=== PATIENT | female | born 1990 | race Caucasian/White ===

== ENCOUNTER 2020-09-06 17:38 | Emergency (ER) | payer OTHER, SELFPAY ==
[2020-09-06 19:25] VITALS: BP 123/69; PULSE 78; RESP 18; TEMP 36.9; O2SAT 98; BMI 33.9
--- NOTE | 2020-09-06 20:19 | ED_ITS ---
HPI - Head Injury General Chief complaint: Wound/Laceration Stated complaint: head inj Time Seen by Provider: 09/06/20 20:19 Source: patient Mode of arrival: ambulatory Limitations: no limitations History of Present Illness HPI Narrative: patient bent down and hit her head on the corner of the electrical box, no LOC, up to date with tetevelyne MONTILLA Complaint: head injury Onset (ago): hour(s) (3 hours) Place: work Loss of Consciousness: no Severity: mild Quality: sharp Other Injuries: laceration Associated symptoms: denies other symptoms Related Data Home Medications Medication Instructions Recorded Confirmed albuterol sulfate 90 mcg/actuation INHALATION 01/21/20 08/30/20 aerosol inhaler flu vacc [id number] 6mos up(PF) ml IM 01/21/20 08/30/20 Previous Rx's Medication Instructions Recorded naproxen 500 mg tablet 500 mg PO BID PRN #60 tab 01/21/20 sertraline 100 mg tablet 150 mg PO DAILY 30 Days #45 cap 08/30/20 Allergies Allergy/AdvReac Type Severity Reaction Status Date / Time bacitracin Allergy Unknown blisters Unverified 08/30/20 07:23 Review of Systems Constitutional: Constitutional: Reports no additional constitutional complaints Eyes: Eyes: Reports no additional eye complaints ENT: Denies dizziness Cardiovascular: Cardiovascular: Reports no additional cardiovascular complaints Respiratory: Respiratory: Reports as per HPI Gastrointestinal: Gastrointestinal: Reports no additional gastrointestinal complaints Genitourinary: Genitourinary: Reports no additional female genitourinary complaints Musculoskeletal: Musculoskeletal: Reports no additional musculoskeletal complaints Integumentary/Breasts: Skin/Breast: Denies rash Neurologic: Reports system reviewed and no additional complaints, except as documented, Denies dizziness and Denies Sensory deficit (Neuro) Psychiatric: Psychiatric: Denies anxiety [facility] Past Medical History Medical History Anxiety Asthma Depression Social History Social History Advance Directives: No Advance Directives Information Provided: No Patient : No Physical Exam Vital Signs: Vital Signs: Last Vital Signs Temp 98.4 F 09/06/20 19:25 Pulse 78 09/06/20 19:25 Resp 18 09/06/20 19:25 BP 123/69 09/06/20 19:25 Pulse Ox 98 09/06/20 19:25 Body Mass Index 33.9 Const: General: healthy appearing Nutritional Appearance: average body habitus Orientation/consciousness: oriented to person and patient oriented x3 Limitations: no limitations HENMT: Head: Yes normal to inspection Ears: external ears normal General nose exam: Normal external nose present Mouth: Normal oral and palatal mucosa present and oropharynx normal Throat: Yes posterior oropharynx normal Eyes: General: appearance normal, both eyes and all related structures Neck: Other: supple Neck: Yes normal visual inspection Chest: Chest palpation & inspection: normal inspection of the chest Resp: Auscultation: clear to auscultation bilaterally Cardio: Jugular venous distension: no JVD Rate: regular rate Rhythm: regular rhythm Heart sounds: S1 normal heart sound present and S2 normal heart sound present GI: Inspection: Yes normal to inspection Palpation (GI): Soft to palpation, nontender and No hepatosplenomegaly present Auscultation: normal bowel sounds : General: Yes no CVA tenderness Back/Spine/Pelvis: Back: no CVA tenderness Skin: Other: 2cm laceration to the vertex of head Neuro: General: oriented to person and patient oriented x3 Cranial nerves: Yes CN's II-XII intact bilaterally Motor exam (neuro): 5/5 motor strength present throughout Sensory Exam: No Sensory deficit (Neuro) Extrem: General: Yes normal to inspection Psych: Appearance: grossly normal Procedures Procedure Narrative Procedure Narrative: [address], ethyl chloride for anesthesia Discharge Plan Discharge Clinical Impression: Laceration of scalp Qualifiers: Encounter type: initial encounter Qualified Code(s): S01.01XA - Laceration without foreign body of scalp, initial encounter Patient Disposition: Home, Self-Care Instructions: Care For Your Stitches (ED) Additional Instructions: staple removal in 7 days Prescriptions: No Action albuterol sulfate 90 mcg/actuation HFA aerosol inhaler inhalation RF: 0 Fluarix Quad [id number] (PF) 60 mcg (15 mcg x 4)/0.5 mL syringe IM RF: 0 naproxen 500 mg tablet 500 mg PO BID PRN (Reason: pain) Qty: 60 RF: 0 sertraline 100 mg tablet 150 mg PO DAILY 30 Days Qty: 45 RF: 4 Referrals: Bernardino Pham, [facility] RESOLUTION REPRESENTATIVE-BC [Primary Care Provider] - 1 week Stand Alone Forms: Work/School Release
== END 2020-09-06 20:50 | disposition home or self-care (01) ==
PROVIDERS: Emergency Provider Emergency Medicine; PCP Nurse Practitioner Family
DX: S01.01XA Laceration without foreign body of scalp, initial encounter (principal); W22.8XXA Striking against or struck by other objects, initial encounter; Y93.89 Activity, other specified; Y92.018 Other place in single-family (private) house as the place of occurrence of the external cause; Y99.9 Unspecified external cause status
CPT/HCPCS: 12001; 99283; 99284

== ENCOUNTER 2021-03-04 17:15 | Emergency (ER) | payer OTHER, SELFPAY ==
[2021-03-04 19:26] VITALS: BP 146/93; PULSE 91; RESP 20; TEMP 36.7; O2SAT 100; BMI 38.0
--- NOTE | 2021-03-04 20:28 | ED.ANIMALBIT ---
HPI - Animal Bite General Chief Complaint: Animal Bite Stated Complaint: Dog bite Source: patient Mode of arrival: ambulatory Limitations: no limitations History of Present Illness HPI narrative: 30-year-old female presents with wound to her upper lip from a dog bite yesterday. complaint: animal bite Onset (ago): day(s) (1) Animal: dog Description of animal: unknown animal and immunizations unknown Mechanism: bite Location: face Pain description: burning and constant Severity scale (1-10): 3 Context: unprovoked Associated symptoms: other (Pain) Related Data Patient tetanus UTD: Yes Home Medications Medication Instructions Recorded Confirmed albuterol sulfate 90 mcg/actuation INHALATION 01/21/20 09/14/20 aerosol inhaler flu vacc [id number] 6mos up(PF) ml IM 01/21/20 08/30/20 Previous Rx's Medication Instructions Recorded sertraline 100 mg tablet 150 mg PO DAILY 30 Days #45 cap 08/30/20 amoxicillin 875 mg-potassium 1 tab PO Q12H 10 Days #20 tab 03/04/21 clavulanate 125 mg tablet (Augmentin) Allergies Allergy/AdvReac Type Severity Reaction Status Date / Time bacitracin Allergy Unknown blisters Unverified 09/14/20 08:38 Review of Systems Review of Systems: Constitutional: No Fever, No Chills ENT/Mouth: No Ear Pain, No Hoarseness, No sore throat Eyes: No Eye Pain, No Swelling, No Redness, No Foreign Body Cardiovascular: No Chest Pain, No SOB Respiratory: No Cough, No Dyspnea Gastrointestinal: No Nausea, No Vomiting, No Diarrhea, No abdominal Pain Genitourinary: No Dysuria, No Hematuria Musculoskeletal: No joint pain, No Myalgias, No Joint Swelling Skin: Positive upper lip abrasion and laceration, No rash Neuro: No Weakness, No Numbness, No Paresthesias, No Loss of Consciousness, No Dizziness, No Headache Psych: No Anxiety/Panic, No Depression Heme/Lymph: no easy bruising, no Lymphadenopathy Endocrine: No Polyuria, No Polydipsia Yes all other systems are reviewed and are negative [facility] Past Medical History Attestation statement: The following information was validated with the patient. Source: old records reviewed Medical History Anxiety Asthma Depression Social History Social History Advance Directives: No Advance Directives Information Provided: Yes Patient : No Physical Exam Vital Signs: Vital Signs: Last Vital Signs Temp 98.0 F 03/04/21 19:26 Pulse 91 03/04/21 19:26 Resp 20 03/04/21 19:26 BP 146/93 H 03/04/21 19:26 Pulse Ox 100 03/04/21 19:26 BMI result Body Mass Index 39.6 Appearance: Alert. Oriented X3. No acute distress. Eyes: Pupils equal, round and reactive to light. ENT: Pharynx normal. Neck: Normal inspection. Neck supple. CVS: Normal heart rate and rhythm. Pulses normal. Respiratory: No respiratory distress. Breath sounds normal. Abdomen: Soft and nontender. Skin: Superficial abrasion and laceration to the upper lip, swelling noted. No erythema or indication of purulent drainage. Skin warm and dry. Normal skin color. Normal skin turgor. Extremities: No lower extremity edema. Gait well-balanced well coordinated. Neuro: No motor deficit. No sensory deficit. Cranial nerves 2-12 intact. Course Course Course Narrative: 30-year-old female presents with upper lip abrasion and laceration from a dog bite. Dog is unknown, will give rabies vaccine and immunoglobulin. Recent Tdap vaccine was given. Will give Augmentin for antibiotic prophylaxis. Patient tolerated immunoglobulin and vaccine this without difficulty. 0.4 mL of immunoglobulin injected into the upper lip. Superficial laceration, wound was cleaned no further action at this time. Patient was advised to use Mederma scar ointment to help reduce scarring. Patient does understands she must return for rabies vaccine series. Patient verbalized understanding of and agrees plan of care discharge home. MDM - Animal Bite Differential Diagnosis Differential diagnosis: Likely bite by animal and dog bite Medical Records Attestation: I reviewed the patient's medical records. Discharge Plan Discharge Clinical Impression: Dog bite Patient Disposition: Home, Self-Care Instructions: Animal Bite (ED), Rabies (ED) Additional Instructions: You were evaluated for a dog bite. Please take Augmentin 875 mg every 12 hours for the next 10 days. Please continue with your rabies vaccine series. Thank you for choosing this emergency department for evaluation. Please follow-up with primary care physician as needed. Return to the emergency department for any new, concerning, or worsening symptoms. Prescriptions: New amoxicillin-pot clavulanate [Augmentin] 875-125 mg tablet 1 tab PO Q12H 10 Days Qty: 20 RF: 0 No Action albuterol sulfate 90 mcg/actuation HFA aerosol inhaler inhalation RF: 0 Fluarix Quad [id number] (PF) 60 mcg (15 mcg x 4)/0.5 mL syringe IM RF: 0 sertraline 100 mg tablet 150 mg PO DAILY 30 Days Qty: 45 RF: 4 Interventions: ED Discharge Assessment Last Done: 03/04/21 23:13 Discharge Date/Time: 03/04/21 23:18
[2021-03-04 20:38] VITALS: BMI 39.6
[2021-03-04] MEDS: Rabies Immune Globulin/PF 900 UNIT/3 ML VIAL 2540.12 UNIT IM (21:29)
[2021-03-04] MEDS: Rabies Vaccine (PCEC)/PF 1 ML VIAL IM (21:30)
[2021-03-04] MEDS: Ibuprofen 600 MG TABLET PO (21:31)
[2021-03-04] MEDS: Amoxicillin/Potassium Clav 875 MG TABLET PO (22:08)
--- NOTE | 2021-03-04 23:11 | PC.NURSE ---
PT PAPERWORK FAXED TO [facility].
== END 2021-03-04 23:18 | disposition home or self-care (01) ==
PROVIDERS: Emergency Provider Emergency Medicine; PCP Nurse Practitioner Family
DX: S00.571A Other superficial bite of lip, initial encounter (principal); Z20.3 Contact with and (suspected) exposure to rabies; Z29.14 Encounter for prophylactic rabies immune globulin; W54.0XXA Bitten by dog, initial encounter; Y93.9 Activity, unspecified; Y92.9 Unspecified place or not applicable; Y99.9 Unspecified external cause status
CPT/HCPCS: 90375; 90471; 90472; 90675; 96372; 99284

== ENCOUNTER 2021-03-07 08:18 | Outpatient (REF) | payer OTHER, SELFPAY | END 2021-03-07 08:19 | disposition home or self-care (01) | LOC: HO.MDS 08:18 | DX: Z29.14 Encounter for prophylactic rabies immune globulin (principal); S00.511D Abrasion of lip, subsequent encounter; W54.0XXD Bitten by dog, subsequent encounter; Z20.3 Contact with and (suspected) exposure to rabies | CPT/HCPCS: 90471; 90675 ==

== ENCOUNTER 2021-03-11 09:47 | Outpatient (REF) | payer OTHER, SELFPAY | END 2021-03-11 09:48 | disposition home or self-care (01) | LOC: HO.MDS 09:47 | PROVIDERS: PCP Nurse Practitioner Family | DX: Z29.14 Encounter for prophylactic rabies immune globulin (principal); S00.5 Superficial injury of lip and oral cavity; W54.0XXD Bitten by dog, subsequent encounter; Z20.3 Contact with and (suspected) exposure to rabies | CPT/HCPCS: 90471; 90675 ==

== ENCOUNTER 2021-03-18 09:52 | Outpatient (REF) | payer OTHER, SELFPAY | END 2021-03-18 09:53 | disposition home or self-care (01) | LOC: HO.MDS 09:52 | PROVIDERS: PCP Nurse Practitioner Family | DX: Z29.14 Encounter for prophylactic rabies immune globulin (principal); S01.551D Open bite of lip, subsequent encounter; W54.0XXD Bitten by dog, subsequent encounter; Z20.3 Contact with and (suspected) exposure to rabies | CPT/HCPCS: 90471; 90675 ==

== ENCOUNTER 2021-07-02 08:08 | Outpatient (REF) | payer OTHER, SELFPAY ==
[2021-07-02 12:06] LABS: MANUAL DIFF FLAG NO
[2021-07-02 12:09] LABS: Appearance Urine CLOUDY; Color Urine YELLOW; Glucose Urine UA NEG (NEG); Leukocyte Esterase Urine 2+ (NEG); Nitrite Urine NEG (NEG); PH 6.5 (5.0-8.0); Specific Gravity - Urine 1.025 (1.005-1.025); UACC Culture Trigger YES; Urine Blood TRACE (NEG); Urine Ketones NEG (NEG); Urine Protein NEG (NEG-TRACE)
[2021-07-02 12:14] LABS: Basophils Percent Auto 0.5 % (0-2); Eosinophils Absolute Auto 0.2 X10*3/uL (0.0-0.4); Eosinophils Percent Auto 2.7 % (0-4); Hematocrit 41.4 % (37.0-47.0); Hemoglobin 13.2 g/dl (12.0-16.0); Imm Gran Abs Auto 0.02 X10*3/uL (0.00-0.03); Imm Gran Pct Auto 0.3 % (0.0-0.4); Lymphocytes Absolute Auto 1.9 X10*3/uL (1.2-4.9); Lymphocytes Percent Auto 25.3 % (20-40); Mean Corpuscular HGB Conc 31.9 g/dl (31.0-35.0); Mean Corpuscular Hemoglobin 28.6 pg (27.0-33.0); Mean Corpuscular Volume 89.8 fL (80.0-98.0); Mean Platelet Volume 9.7 fL (9.4-12.3); Monocytes Absolute Auto 0.5 X10*3/uL (0.1-1.2); Monocytes Percent Auto 6.5 % (2-11); Neutrophils Absolute Auto 4.9 x10*3/uL (2.0-8.3); Neutrophils Percent Auto 64.7 % (45-73); Platelet Count 333 X10*3/uL (160-400); Red Blood Count 4.61 X10*6/uL (4.20-5.50); Red Cell Distribution Width 12.8 % (11.0-16.0); White Blood Count 7.5 X10*3/uL (4.8-10.8)
[2021-07-02 12:41] LABS: Alanine Aminotransferase 20 U/L (0-31); Alkaline Phosphatase 84 U/L (39-117); Anion Gap 11 (12-20); Aspartate Amino Transferase 15 U/L (5-31); Bilirubin Total 0.6 mg/dL (0.0-1.0); Blood Urea Nitrogen 12 mg/dL (9-16); Calcium 9.4 mg/dL (8.4-10.2); Carbon Dioxide 22 mmol/L (22-29); Chloride 107 mmol/L (96-108); Cholesterol 183 mg/dL; Estimated Glomerular Filt Rate > 60; Glucose Fasting 96 mg/dL (60-99); HDL Cholesterol 51 mg/dL; LDL Cholesterol Calculated 103 mg/dl; Potassium 4.3 mmol/L (3.3-5.1); Sodium 136 mmol/L (135-145); Total Protein 7.2 g/dL (6.5-8.0); Triglycerides 145 mg/dL
[2021-07-02 12:42] LABS: TSH reflex Free T4 3.75 uIU/mL (0.32-4.0)
[2021-07-02 13:08] LABS: Bacteria Urine 3+ /LPF; RBC Urine 0-2 /HPF (0); Squamous Epithelial Cell Urine 4+ /LPF
== END 2021-07-02 08:09 | disposition home or self-care (01) ==
LOC: HO.HMGCLDS 08:08
PROVIDERS: Visit Provider Nurse Practitioner Family
DX: Z00.00 Encounter for general adult medical examination without abnormal findings (principal)
CPT/HCPCS: 36415; 80053; 80061; 81001; 81003; 84443; 85025; 87086

== ENCOUNTER 2022-07-03 11:10 | Outpatient (REF) | payer OTHER, SELFPAY ==
[2022-07-03 13:59] LABS: MANUAL DIFF FLAG NO
[2022-07-03 14:06] LABS: Appearance Urine Turbid; Color Urine Dark Yellow; Glucose Urine UA Negative (Negative); Leukocyte Esterase Urine Moderate (2+) (Negative); Nitrite Urine Negative (Negative); Specific Gravity - Urine >= 1.030 (1.005-1.025); UMIC TRIGGER UACC YES; Urine Blood Negative (Negative); Urine Ketones Negative (Negative); Urine Protein Trace mg/dL (Neg-Trace)
[2022-07-03 14:09] LABS: Basophils Absolute Auto 0.1 X10*3/uL (0.0-0.2); Basophils Percent Auto 0.6 % (0-2); Eosinophils Absolute Auto 0.2 X10*3/uL (0.0-0.4); Eosinophils Percent Auto 2.4 % (0-4); Hematocrit 43.2 % (37.0-47.0); Hemoglobin 14.2 g/dl (12.0-16.0); Imm Gran Abs Auto 0.03 X10*3/uL (0.00-0.03); Imm Gran Pct Auto 0.4 % (0.0-0.4); Lymphocytes Absolute Auto 2.5 X10*3/uL (1.2-4.9); Lymphocytes Percent Auto 29.5 % (20-40); Mean Corpuscular HGB Conc 32.9 g/dl (31.0-35.0); Mean Corpuscular Hemoglobin 29.2 pg (27.0-33.0); Mean Corpuscular Volume 88.9 fL (80.0-98.0); Mean Platelet Volume 9.6 fL (9.4-12.3); Monocytes Absolute Auto 0.6 X10*3/uL (0.1-1.2); Monocytes Percent Auto 6.5 % (2-11); Neutrophils Absolute Auto 5.2 x10*3/uL (2.0-8.3); Neutrophils Percent Auto 60.6 % (45-73); Platelet Count 332 X10*3/uL (160-400); Red Blood Count 4.86 X10*6/uL (4.20-5.50); Red Cell Distribution Width 12.9 % (11.0-16.0); White Blood Count 8.5 X10*3/uL (4.8-10.8)
[2022-07-03 14:27] LABS: Bacteria Urine 4+ (None Seen); Hyaline Casts Urine 0-2 /LPF (0-2); RBC Urine 0-2 /HPF (0-2); Squamous Epithelial Cell Urine >20 /HPF (0-2); UACC Culture Trigger YES
[2022-07-03 15:21] LABS: Alanine Aminotransferase 17 U/L (0-31); Albumin Level 4.2 g/dL (3.5-5.0); Alkaline Phosphatase 92 U/L (39-117); Anion Gap 17 (12-20); Aspartate Amino Transferase 18 U/L (5-31); Bilirubin Total 0.7 mg/dL (0.0-1.0); Blood Urea Nitrogen 15 mg/dL (9-16); Calcium 9.4 mg/dL (8.4-10.2); Carbon Dioxide 20 mmol/L (22-29); Chloride 106 mmol/L (96-108); Cholesterol 236 mg/dL; Estimated Glomerular Filt Rate > 60; Glucose Fasting 83 mg/dL (60-99); HDL Cholesterol 53 mg/dL; LDL Cholesterol Calculated 155 mg/dl; Potassium 4.5 mmol/L (3.3-5.1); Sodium 138 mmol/L (135-145); Total Protein 7.3 g/dL (6.5-8.0); Triglycerides 140 mg/dL
[2022-07-03 15:39] LABS: TSH reflex Free T4 3.17 uIU/mL (0.32-4.0)
== END 2022-07-03 11:11 | disposition home or self-care (01) ==
LOC: HO.HMGCLDS 11:10
PROVIDERS: PCP Nurse Practitioner Family; Visit Provider Nurse Practitioner Family
DX: Z00.00 Encounter for general adult medical examination without abnormal findings (principal)
CPT/HCPCS: 36415; 80053; 80061; 81001; 81003; 84443; 85025; 87086

== ENCOUNTER 2022-12-31 10:39 | Outpatient (AMB) | payer OTHER, SELFPAY ==
[2022-12-31 11:12] VITALS: BP 100/64; PULSE 88; O2SAT 98; BMI 39.8
--- NOTE | 2022-12-31 11:12 | MHC.PC.OV ---
Vital Signs 12/31/22 11:12 Height 6 ft Weight 293 lb 6 oz BMI 39.8 BP 100/64 Blood Pressure Location Rt brachial Position Sitting Pulse 88 Pulse Source Pulse Oximeter Pulse Oximetry (%) 98 Oxygen Delivery Method Room Air Intake Visit Reasons: 6 month follow up Depression Intake Note: pt wants flu vaccine today Allergies bacitracin Allergy (Unknown, Verified 12/31/22 11:14) blisters Medication List - Last Reconciled 12/31/22 by Bernardino Pham [facility] albuterol sulfate 90 mcg/actuation 2 puffs inhalation Q8H PRN 30 days betamethasone dipropionate 0.05% 1 appl topical DAILY PRN flu vacc [id number] 6mos up(PF) mL IM sertraline 100 mg PO DAILY 30 days Tobacco use date assessed: 12/31/22 Dental Screening Dental Screen Date: 12/31/22 Did you have a dental visit in the last 12 months?: No Did you have a dental problem in the last 6 months where you did not have access to dental care?: No Was dental information given to patient?: Patient has dentist HPI 6 month follow up Depression HPI Details Depression/anxiety: Pt reports doing well overall. She is currently taking sertraline 100mg. She reports some increased anxiety but she is able to manage it. Denies any SI and HI. Hx of increased, TSH, will recheck thyroid function. [facility] Medical History (Updated 12/31/22 @ 12:53 by ATUL PorterANNIE) Asthma Anxiety Depression Family History Maternal Grandmother Mental health disorder Paternal Grandmother Mental health disorder Mother Mental health disorder Social History Housing: House Patient Tobacco Use Status: Never used Tobacco e-Cigarette/Vaping Use: Never Used service: No Current occupational status: employed Cognitive needs: No Hearing needs: No Vision needs: No Questionnaire Thrive Questionnaire Date Thrive assessed: 07/03/22 KINGA-7 AMB Questionnaire KINGA-7 Date KINGA - 7 assessed: 07/03/22 Source: Developed by Drs. Evan Villalobos, Marilyn Ramirez, Víctor Weber and colleagues, with an educational rebekah from [employer]. Review of Systems Const Reports as per HPI Physical exam (Primary Care) Vital Signs: Last Vital Signs Pulse 88 12/31/22 11:12 BP 100/64 12/31/22 11:12 Pulse Ox 98 12/31/22 11:12 Oxygen Delivery Method Room Air 12/31/22 11:12 BMI result Body Mass Index 39.8 Tobacco/Smoking Status: Tobacco use Status Tobacco use date assessed 12/31/22 12/31/22 11:17 Patient Tobacco Use Status Never used Tobacco 12/31/22 11:17 e-Cigarette/Vaping Use Never Used 12/31/22 11:17 Thrive Assessment: Date of Thrive Assessment Date Thrive assessed 07/03/22 12/31/22 11:17 Const General: cooperative Nutritional Appearance: obese Orientation/consciousness: patient oriented x3 Resp Effort & Inspection: normal respiratory effort Auscultation: clear to auscultation bilaterally Cardio Rate: regular rate Rhythm: regular rhythm Heart sounds: S1 normal heart sound present and S2 normal heart sound present Neuro General: patient oriented x3 Psych Appearance: grossly normal Mental Status: mental status grossly normal Speech and movement: Normal speech and movement present Affect: normal affect Attitude: cooperative Thought process: Normal thought process present Thought content: Normal thought content present Insight: Good insight present (Psych) Judgement: Good judgement present (Psych) Assessment and Plan Assessment & Plan (1) Elevated TSH: Code(s): R79.89 - Other specified abnormal findings of blood chemistry (2) Major depression, recurrent: Code(s): F33.9 - Major depressive disorder, recurrent, unspecified Plan: cont same medication (3) Anxiety: Code(s): F41.9 - Anxiety disorder, unspecified Plan The patient agreed to the use of a medical officer psychiatry for this encounter. Scribed for DEB Franks by Cookie Constantino medical officer psychiatry, on 12/31/2022 at 11:25 EST Orders: Orders TSH reflex Free T4 Today R79.89 - Other specified abnormal findings of blood chemistry Medications: Refilled betamethasone dipropionate 0.05% 1 appl topical DAILY PRN 45 grams 4RF skin irritation Coding Level of Care Code Est Pt Level 3 (38103) Diagnoses Elevated TSH R79.89 Major depression, recurrent F33.9 Anxiety F41.9
== END 2022-12-31 11:37 | disposition home or self-care (01) ==
PROVIDERS: Visit Provider Nurse Practitioner Family
DX: R79.89 Other specified abnormal findings of blood chemistry (principal); F33.9 Major depressive disorder, recurrent, unspecified; F41.9 Anxiety disorder, unspecified
CPT/HCPCS: 99213

== ENCOUNTER 2022-12-31 11:38 | Outpatient (REF) | payer OTHER, SELFPAY | END 2022-12-31 11:39 | disposition home or self-care (01) | LOC: HO.HMGCLDS 11:38 | PROVIDERS: PCP Nurse Practitioner Family; Visit Provider Nurse Practitioner Family | DX: R94.6 Abnormal results of thyroid function studies (principal) | CPT/HCPCS: 36415; 84443 ==

== ENCOUNTER 2023-05-22 08:07 | Outpatient (AMB) | payer OTHER, SELFPAY ==
[2023-05-22 08:32] VITALS: BP 120/70; PULSE 88; TEMP 36.3; O2SAT 98; BMI 40.4
--- NOTE | 2023-05-22 08:32 | AM.OFFWIN_ITS ---
Intake Vital Signs 05/22/23 08:32 Height 6 ft Weight 298 lb BMI 40.4 BP 120/70 Blood Pressure Location Lt brachial Position Sitting Pulse 88 Pulse Source Pulse Oximeter Temp 97.3 F Temp Source Temporal Artery Scan Pulse Oximetry (%) 98 Oxygen Delivery Method Room Air Intake Visit Reasons: EP ?Sinus/Ear Infection Intake Note: pt is here today for sinus ear infection started friday Patient Tobacco Use Status: Never used Tobacco Allergies bacitracin Allergy (Unknown, Verified 05/22/23 08:37) blisters Do you need a note to return to daycare/school/sports/work: No HPI EP ?Sinus/Ear Infection HPI Details This is a 32-year-old female patient who presents today with a 4 day history of sinus pressure and left ear pain. Reports a fever on Friday, however no fever since then. She has been taking Mucinex with some mild benefit. [facility] Medical History Asthma Anxiety Depression Family History Maternal Grandmother Mental health disorder Paternal Grandmother Mental health disorder Mother Mental health disorder Social History Housing: House Patient Tobacco Use Status: Never used Tobacco e-Cigarette/Vaping Use: Never Used service: No Current occupational status: employed Cognitive needs: No Hearing needs: No Vision needs: No Review of Systems Const All systems reviewed & are unremarkable except as noted in HPI and below Physical Exam Vital Signs: Last Vital Signs Temp 97.3 F 05/22/23 08:32 Pulse 88 05/22/23 08:32 BP 120/70 05/22/23 08:32 Pulse Ox 98 05/22/23 08:32 Oxygen Delivery Method Room Air 05/22/23 08:32 BMI result Body Mass Index 40.4 Const General: cooperative and no acute distress HEENT Head: Yes normal to inspection Ears: hearing grossly normal bilaterally, external ears normal and TM abnormal (TMs erythematous with effusion b/l, L>R) General nose exam: Normal external nose present and Nasal discharge present mucoid Face and sinus: Yes sinus tenderness (maxillary ) Throat: Yes posterior oropharynx abnormal (mild erythema) Neck Neck: Yes no lymphadenopathy Resp Effort & Inspection: normal respiratory effort Auscultation: clear to auscultation bilaterally Cardio Palpation: normal PMI Rate: regular rate Rhythm: regular rhythm Skin General skin exam: no rashes or lesions noted Extrem General: Yes capillary refill normal and Yes no clubbing, cyanosis or edema Psych Appearance: grossly normal Mental Status: mental status grossly normal Speech and movement: Normal speech and movement present Assessment & Plan Assessment & Plan (1) Bilateral otitis media with effusion: Code(s): H65.93 - Unspecified nonsuppurative otitis media, bilateral Plan: Augmentin for bilateral OM. Reviewed indications, use, possible side effects of this medication. She may continue to take [id number] decongestants and Tylenol/Motrin as needed for symptomatic treatment. If she does not improve with time and treatment, she should return to the clinic or PCP for further evaluation. She verbalizes understanding and agrees to plan. Medications: New amoxicillin-pot clavulanate 875-125 mg 1 tab PO BID 10 days 20 tabs 0RF H65.93 - Unspecified nonsuppurative otitis media, bilateral Coding Level of Care Code Est Pt Level 3 (24450) Diagnoses Bilateral otitis media with effusion H65.93
== END 2023-05-22 09:11 | disposition home or self-care (01) ==
PROVIDERS: PCP Nurse Practitioner Family; Visit Provider Nurse Practitioner Family
DX: H65.93 Unspecified nonsuppurative otitis media, bilateral (principal)
CPT/HCPCS: 99213

== ENCOUNTER 2023-08-06 08:59 | Outpatient (REF) | payer OTHER, SELFPAY ==
[2023-08-06 10:27] LABS: MANUAL DIFF FLAG NO
[2023-08-06 10:28] LABS: Appearance Urine Clear; Color Urine Yellow; Glucose Urine UA Negative (Negative); Leukocyte Esterase Urine Trace (Negative); Nitrite Urine Negative (Negative); UMIC TRIGGER UACC YES; Urine Blood Negative (Negative); Urine Ketones Negative (Negative); Urine Protein Negative (Neg-Trace)
[2023-08-06 10:32] LABS: Bacteria Urine 2+ (None Seen); Hyaline Casts Urine 0-2 /LPF (0-2); RBC Urine 0-2 /HPF (0-2); UACC Culture Trigger YES
[2023-08-06 10:47] LABS: Basophils Absolute Auto 0.1 X10*3/uL (0.0-0.2); Basophils Percent Auto 0.6 % (0-2); Eosinophils Absolute Auto 0.2 X10*3/uL (0.0-0.4); Eosinophils Percent Auto 2.4 % (0-4); Hematocrit 41.4 % (37.0-47.0); Hemoglobin 13.6 g/dl (12.0-16.0); Imm Gran Abs Auto 0.03 X10*3/uL (0.00-0.03); Imm Gran Pct Auto 0.4 % (0.0-0.4); Lymphocytes Absolute Auto 2.3 X10*3/uL (1.2-4.9); Lymphocytes Percent Auto 29.7 % (20-40); Mean Corpuscular HGB Conc 32.9 g/dl (31.0-35.0); Mean Corpuscular Hemoglobin 29.1 pg (27.0-33.0); Mean Corpuscular Volume 88.7 fL (80.0-98.0); Mean Platelet Volume 9.4 fL (9.4-12.3); Monocytes Absolute Auto 0.5 X10*3/uL (0.1-1.2); Monocytes Percent Auto 5.8 % (2-11); Neutrophils Absolute Auto 4.8 x10*3/uL (2.0-8.3); Neutrophils Percent Auto 61.1 % (45-73); Platelet Count 350 X10*3/uL (160-400); Red Blood Count 4.67 X10*6/uL (4.20-5.50); Red Cell Distribution Width 13.2 % (11.0-16.0); White Blood Count 7.8 X10*3/uL (4.8-10.8)
[2023-08-06 11:24] LABS: Alanine Aminotransferase 21 U/L (0-31); Alkaline Phosphatase 86 U/L (39-117); Anion Gap 13 (12-20); Aspartate Amino Transferase 18 U/L (5-31); Bilirubin Total 0.5 mg/dL (0.0-1.0); Blood Urea Nitrogen 11 mg/dL (9-16); Calcium 9.8 mg/dL (8.4-10.2); Carbon Dioxide 26 mmol/L (22-29); Chloride 104 mmol/L (96-108); Cholesterol 207 mg/dL (<200); Estimated Glomerular Filt Rate > 60; Glucose Fasting 80 mg/dL (60-99); HDL Cholesterol 58 mg/dL (>40); LDL Cholesterol Calculated 125 mg/dL (<100); Potassium 4.3 mmol/L (3.3-5.1); Sodium 139 mmol/L (135-145); Total Protein 7.5 g/dL (6.5-8.0); Triglycerides 123 mg/dL (<150)
[2023-08-06 11:40] LABS: TSH reflex Free T4 3.57 uIU/mL (0.32-4.0); Vitamin D 25-OH Total 28.5 ng/mL (>30)
== END 2023-08-06 09:00 | disposition home or self-care (01) ==
LOC: HO.HMGCLDS 08:59
PROVIDERS: PCP Nurse Practitioner Family; Visit Provider Nurse Practitioner Family
DX: Z00.00 Encounter for general adult medical examination without abnormal findings (principal); R39.9 Unspecified symptoms and signs involving the genitourinary system
CPT/HCPCS: 36415; 80053; 80061; 81001; 82306; 84443; 85025; 87086

== ENCOUNTER 2023-10-07 15:18 | Outpatient (AMB) | payer OTHER, SELFPAY ==
--- NOTE | 2023-10-07 15:19 | A.OFFPC_ITS ---
Vital Signs 10/07/23 15:20 Height 6 ft Weight 299 lb BMI 40.5 BP 120/78 Blood Pressure Location Lt brachial Position Sitting Pulse 93 Pulse Source Pulse Oximeter Pulse Oximetry (%) 97 Oxygen Delivery Method Room Air Intake Visit Reasons: Annual PE Intake Note: Patient here for physical exam. Pap: 2023 Allergies bacitracin Allergy (Unknown, Verified 10/07/23 16:51) blisters Medication List - Last Reconciled 10/07/23 by ATUL PorterANNIE albuterol sulfate 90 mcg/actuation 2 puffs inhalation Q8H PRN 30 days betamethasone dipropionate 0.05% 1 appl topical DAILY PRN flu vacc [id number] 6mos up(PF) mL IM Tobacco use date assessed: 10/07/23 Dental Screening Dental Screen Date: 10/07/23 Did you have a dental visit in the last 12 months?: No Did you have a dental problem in the last 6 months where you did not have access to dental care?: No Was dental information given to patient?: No HPI Annual PE HPI Details Pt is here for a PE. Labs were already performed. Has a house wirer, reports being approx 7-8 weeks . [facility] Medical History Asthma Anxiety Depression Family History Maternal Grandmother Mental health disorder Paternal Grandmother Mental health disorder Mother Mental health disorder Social History Housing: House Patient Tobacco Use Status: Never used Tobacco e-Cigarette/Vaping Use: Never Used service: No Current occupational status: employed Cognitive needs: No Hearing needs: No Vision needs: No Questionnaire PHQ-9 Over the last 2 weeks, how often have you been bothered by any of the following problems? 23409 - PHQ-9 Billing: Patient declined-do not bill Source: Developed by Drs. Evan Villalobos, Marilyn Ramirez, Víctor Weber and colleagues, with an educational rebekah from [employer]. Thrive Questionnaire Date Thrive assessed: 07/03/22 I am a: Patient What is your living situation today?: I have a steady place to live Within the past 12 months, did the food you bought not last and you didn't have the money to get more?: Never true Within the past 12 months, did you worry whether your food would run out before you got money to buy more?: Never true Do you have trouble paying for medicines?: No Do you have trouble getting transportation to medical appointments?: No Do you have trouble paying your heating and electricity bill?: No Do you have trouble taking care of your child, family member or friend?: No Do you have trouble with day-to-day activities such as bathing, preparing meals, shopping, managing finances, etc.?: No Are you currently unemployed and looking for a job?: No Are you interested in more education?: No THRIVE Score: 0 AUDIT C Alcohol Use Questionnaire (AUDIT-C) 1. How often do you have a drink containing alcohol?: 2-4 times a month 2. How many drinks containing alcohol do you have on a typical day when you are drinking?: 3 or 4 3. How often do you have six or more drinks on one occasion?: Monthly Total Score: 5 KINGA-7 AMB Questionnaire KINGA-7 Date KINGA - 7 assessed: 07/03/22 Feeling nervous, anxious, or on edge: 1 = Several days Not being able to stop or control worryin = Not at all Worrying too much about different things: 1 = Several days Trouble relaxin = Not at all Being so restless that it is hard to sit still: 0 = Not at all Becoming easily annoyed or irritable: 1 = Several days Feeling afraid as if something awful might happen: 1 = Several days Total KINGA-7 score (0-4 normal; 5-9 mild; 10-14 moderate; 15-21 severe): 4 Source: Developed by Drs. Evan Villalobos, Marilyn Ramirez, Víctor Weber and colleagues, with an educational rebekah from [employer]. KINGA-7 Assessment Billing KINGA-7 Assessment Tool: KINGA-7 Assessment 32978 Review of Systems Const Denies chills and Denies fever(s) Eyes Denies blurry vision ENT Denies vertigo, Denies dizziness and Denies sore throat Card Denies chest pain at rest, Denies chest pain with activity, Denies diaphoresis, Denies dyspnea and Denies dyspnea on exertion Resp Denies cough, Denies dyspnea, Denies dyspnea on exertion and Denies wheezing GI Denies abdominal pain, Denies melena, Denies hematochezia, Denies constipation, Denies diarrhea and Denies loose stools Denies hematuria Musc Denies numbness and Denies tingling Skin/Breast Denies lesions Neuro Denies vertigo, Denies dizziness, Denies numbness and Denies tingling Psych Denies anxiety, Denies depression, Denies homicidal ideation, Denies suicidal ideation and Denies other (substance abuse) Aller/Immun Denies wheezing Physical exam (Primary Care) Vital Signs: Last Vital Signs Pulse 93 10/07/23 15:20 BP 120/78 10/07/23 15:20 Pulse Ox 97 10/07/23 15:20 Oxygen Delivery Method Room Air 10/07/23 15:20 BMI result Body Mass Index 40.5 Tobacco/Smoking Status: Tobacco use Status Tobacco use date assessed 10/07/23 10/07/23 15:24 Patient Tobacco Use Status Never used Tobacco 10/07/23 15:19 e-Cigarette/Vaping Use Never Used 10/07/23 15:19 Thrive Assessment: Date of Thrive Assessment Date Thrive assessed 07/03/22 10/07/23 15:19 Const General: cooperative Nutritional Appearance: obese morbidly obese Orientation/consciousness: patient oriented x3 HENMT Head: Yes normal to inspection, Yes normocephalic and Yes atraumatic Ears: TM's normal bilaterally Eyes General: appearance normal, both eyes and all related structures Alignment and Position: alignment normal and position normal Neck Neck: Yes normal visual inspection and Yes no lymphadenopathy Thyroid: Thyroid normal Resp Effort & Inspection: normal respiratory effort Auscultation: clear to auscultation bilaterally Cardio Rate: regular rate Rhythm: regular rhythm Heart sounds: S1 normal heart sound present, S2 normal heart sound present and no murmurs GI Palpation (GI): Soft to palpation and nontender Auscultation: normal bowel sounds Skin Rashes: no rashes Neuro General: patient oriented x3, moves all extremities, no focal motor deficits and deep tendon reflexes 2+ bilaterally Romberg Test: Negative Psych Appearance: grossly normal Mental Status: mental status grossly normal Speech and movement: Normal speech and movement present Affect: normal affect Attitude: cooperative Thought process: Normal thought process present Thought content: Normal thought content present Insight: Good insight present (Psych) Judgement: Good judgement present (Psych) Assessment and Plan Assessment & Plan (1) Physical exam: Code(s): Z00.00 - Encounter for general adult medical examination without abnormal findings Plan The patient agreed to the use of a medical records administrator for this encounter. Scribed for ATUL Franks-ANNIE by Cookie Constantino medical records administrator, on 10/07/2023 at 15:40 EST. Orders: Orders Lipid Panel Today Z00.00 - Encounter for general adult medical examination without abnormal findings Complete Blood Count Auto Diff Today Z00.00 - Encounter for general adult medical examination without abnormal findings Comprehensive Stuart. Panel Fast Today Z00.00 - Encounter for general adult medical examination without abnormal findings TSH reflex Free T4 Today Z00.00 - Encounter for general adult medical examination without abnormal findings UA CC w/rflx Micro + Cult Today Z00.00 - Encounter for general adult medical examination without abnormal findings Coding Level of Care Code Est Pt Prev Care 18-39y(00634) Diagnoses Physical exam Z00.00 Additional Codes KINGA-7 Assessment Billing - KINGA-7 Assessment Tool: KINGA-7 Assessment 33350 ([id number])
[2023-10-07 15:20] VITALS: BP 120/78; PULSE 93; O2SAT 97; BMI 40.5
== END 2023-10-07 15:48 | disposition home or self-care (01) ==
PROVIDERS: Visit Provider Nurse Practitioner Family
DX: Z00.00 Encounter for general adult medical examination without abnormal findings (principal)
CPT/HCPCS: 99395

== ENCOUNTER 2024-04-19 11:18 | Outpatient (AMB) | payer OTHER, SELFPAY ==
--- NOTE | 2024-04-19 11:21 | A.OFFPC_ITS ---
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 Accompanied by: Daughter Allergies bacitracin Allergy (Unknown, Verified 04/19/24 12:03) blisters Medication List - Last Reconciled 04/19/24 by WILL PorterP- albuterol sulfate 90 mcg/actuation 2 puffs inhalation Q8H PRN 30 days betamethasone dipropionate 0.05% 1 appl topical DAILY PRN mv-mins 16-chgj-lexdv no.1-dha 28-1-300 mg (PNV-[place]) 1 cap PO DAILY Tobacco use date assessed: 04/19/24 Dental Screening Dental Screen Date: 04/19/24 Did you have a dental visit in the last 12 months?: Yes Did you have a dental problem in the last 6 months where you did not have access to dental care?: No Was dental information given to patient?: Patient has dentist HPI 6 month follow up HPI Details Chief Complaint The patient reports experiencing pelvic pain. History of Present Illness The patient is a 33-year-old female presenting with pelvic pain (anterior). 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 The pelvic pain started recently, prompting a visit to [facility] yesterday. Upon evaluation at the ER, it was noted that there was no associated vaginal discharge or bleeding. During the ER visit, a blade boner performed a vaginal examination and conducted some tests, the results of which are pending. The patient expresses that the pelvic pain intensifies with movement; however, she does not experience any accompanying lower back pain. Given the symptoms, concerns about nerve involvement have been raised, potentially due to spinal origin issues. The ER advised seeking care clinician, specifically from a practitioner specializing in managing patients. The patient has identified such a chiropractor and plans to contact them for further assistance. Social History - Employment status, housing, education, family planning, substance use, exercise, functional status, level of activity, and current nutritional intake were not discussed. Health Maintenance - vp care management recommended for preg nant patients discussed. Review of Systems - Genitourinary: Denies any vaginal disc harge or bleeding. - Musculoskeletal: Reports pelvic pain e xacerbated by movement. - Neurological: Denies lower back pain. Physical Exam General: Cooperative, healthy appearing, comfortable, no acute distress and well developed Orientation: Patient oriented x3 Limitations: No limitations Head: Normal to inspection Ears: Hearing grossly normal bilaterally Nose: Normal external nose present Face and sinus: Normal facial exam Eyes: Appearance normal, both eyes and all related structures Neck: Normal visual inspection and Yes full ROM Respiratory: Normal respiratory effort and able to speak in complete sentences. Clear to auscultation bilaterally Cardiovascular: Regular rate and rhythm. Normal S1 and S2 GI: Normal to inspection. Soft to palpation and nontender Neuro: Patient oriented x3 Extremities: Normal to inspection Results - Labs and tests pending results from [facility] ER visit. Plan - Acknowledge patient's pelvic pain and current status. - Ensure communication with the OBGYN re garding symptoms. - Encourage the patient to consult a [facility] ropractor with expertise in - related care. Patient was informed and verbally consented to the use of an ambient scribe for clinic note documentation during this visit. Discussion Notes I discussed the current status of the patient's pelvic pain and its potential relationship to nerve involvement or spinal issues, despite the absence of lower back pain. I emphasized that the restaurant shift leader was already informed about the symptoms and a recommendation for care clinician had been made. I also reaffirmed the importance of selecting a chiropractor specialized in care. I assured her that the outstanding results from [facility] would be reviewed once available, and any further necessary interventions would be coordinated with her OBGYN. Patient Instructions - Follow up with your OBGYN regarding an y changes or worsening of symptoms. - Contact the suggested chiropractor michael lewis in [facility]. - Monitor symptoms, and report any new o r worsening pelvic pain or other concerning developments. - Await further guidance once results fr om the [facility] visit are available. [facility] Medical History (Updated 04/19/24 @ 12:04 by ATUL Porter-) Asthma Anxiety Depression Surgical History (Updated 04/19/24 @ 11:25 by Villa Enamorado [facility]) No pertinent past surgical history Family History Maternal Grandmother Mental health disorder Paternal Grandmother Mental health disorder Mother Mental health disorder Social History Housing: House Patient Tobacco Use Status: Never used Tobacco e-Cigarette/Vaping Use: Never Used service: No Current occupational status: employed Cognitive needs: No Hearing needs: No Vision needs: No Questionnaire PHQ-9 Over the last 2 weeks, how often have you been bothered by any of the following problems? 1. Little interest or pleasure in doing things: several days 2. Feeling down, depressed, or hopeless: several days 3. Trouble falling or staying asleep, or sleeping too much: several days 4. Feeling tired or having little energy: several days 5. Poor appetite or overeating: not at all 6. Feeling bad about yourself - or that you are a failure or have let yourself or your family down: not at all 7. Trouble concentrating on things, such as reading the newspaper or watching television: not at all 8. Moving or speaking so slowly that other people could have noticed. Or the opposite - being so fidgety or restless that you have been moving around a lot more than usual: not at all 9. Thoughts that you would be better off or of hurting yourself in some way: not at all Total score: 4 Depression Screening Interpretation: Negative Depression Screening Done: Yes 15439 - PHQ-9 Billing: Yes Source: Developed by Drs. Evan Villalobos, Marilyn Ramirez, Víctor Weber and colleagues, with an educational rebekah from [employer]. Thrive Questionnaire Date Thrive assessed: 04/19/24 I am a: Parent/Caregiver What is your living situation today?: I have a steady place to live Within the past 12 months, did the food you bought not last and you didn't have the money to get more?: Never true Within the past 12 months, did you worry whether your food would run out before you got money to buy more?: Never true Do you have trouble paying for medicines?: No Do you have trouble getting transportation to medical appointments?: No Do you have trouble paying your heating and electricity bill?: No Do you have trouble taking care of your child, family member or friend?: No Do you have trouble with day-to-day activities such as bathing, preparing meals, shopping, managing finances, etc.?: No Are you currently unemployed and looking for a job?: No Are you interested in more education?: No Please select the resources that you would like help with: None Currently or been in a relationship where the following occur: I choose not to answer THRIVE Score: 0 AUDIT C Alcohol Use Questionnaire (AUDIT-C) 1. How often do you have a drink containing alcohol?: Never 2. How many drinks containing alcohol do you have on a typical day when you are drinking?: 1 or 2 3. How often do you have six or more drinks on one occasion?: Never Total Score: 0 Score Reviewed/Action Taken: Yes KINGA-7 AMB Questionnaire KINGA-7 Date KINGA - 7 assessed: 04/19/24 Feeling nervous, anxious, or on edge: 1 = Several days Not being able to stop or control worryin = Several days Worrying too much about different things: 1 = Several days Trouble relaxin = Not at all Being so restless that it is hard to sit still: 0 = Not at all Becoming easily annoyed or irritable: 1 = Several days Feeling afraid as if something awful might happen: 1 = Several days Total KINGA-7 score (0-4 normal; 5-9 mild; 10-14 moderate; 15-21 severe): 5 Source: Developed by Drs. Evan Villalobos, Marilyn Ramirez, Víctor Weber and colleagues, with an educational rebekah from [employer]. KINGA-7 Assessment Billing KINGA-7 Assessment Tool: KINGA-7 Assessment 00010 Physical exam (Primary Care) Vital Signs: Last Vital Signs Pulse 89 04/19/24 11:24 BP 122/72 04/19/24 11:24 Pulse Ox 98 04/19/24 11:24 BMI result Body Mass Index 40.7 Tobacco/Smoking Status: Tobacco use Status Tobacco use date assessed 04/19/24 04/19/24 11:27 Patient Tobacco Use Status Never used Tobacco 04/19/24 11:23 e-Cigarette/Vaping Use Never Used 04/19/24 11:23 PHQ-9: PHQ-9 Score PHQ-9: Total score 4 04/19/24 11:27 Depression Screening Interpretation: Negative Thrive Assessment: Date of Thrive Assessment Date Thrive assessed 04/19/24 04/19/24 11:27 Currently or been in a relationship where the following occur: I choose not to answer Coding Level of Care Code Est Pt Level 3 (59095) Diagnoses Pelvic pain R10.2 Additional Codes KINGA-7 Assessment Billing - KINGA-7 Assessment Tool: KINGA-7 Assessment 40215 ([id number]) PHQ-9 - 76851 - PHQ-9 Billing: Yes ([id number]) Assessment & Plan Assessment & Plan (1) Pelvic pain: Code(s): R10.2 - Pelvic and perineal pain Category: Medical Plan .
[2024-04-19 11:24] VITALS: BP 122/72; PULSE 89; O2SAT 98; BMI 40.7
== END 2024-04-19 11:53 | disposition home or self-care (01) ==
PROVIDERS: PCP Nurse Practitioner Family; Visit Provider Nurse Practitioner Family
DX: R10.2 Pelvic and perineal pain (principal)

== ENCOUNTER → 2024-04-19 11:18 | Outpatient (BNVA) | payer OTHER, SELFPAY | PROVIDERS: PCP Nurse Practitioner Family; Visit Provider Nurse Practitioner Family | DX: R10.2 Pelvic and perineal pain (principal) | CPT/HCPCS: 96127; 99212 ==

== ENCOUNTER 2024-04-20 07:47 | Outpatient (REF) | payer OTHER, SELFPAY ==
[2024-04-20 09:57] LABS: MANUAL DIFF FLAG NO
[2024-04-20 10:14] LABS: Basophils Percent Auto 0.3 % (0-2); Eosinophils Absolute Auto 0.1 X10*3/uL (0.0-0.4); Eosinophils Percent Auto 0.9 % (0-4); Hematocrit 36.4 % (37.0-47.0); Hemoglobin 11.9 g/dl (12.0-16.0); Imm Gran Abs Auto 0.04 X10*3/uL (0.00-0.03); Imm Gran Pct Auto 0.4 % (0.0-0.4); Lymphocytes Absolute Auto 1.6 X10*3/uL (1.2-4.9); Lymphocytes Percent Auto 16.9 % (20-40); Mean Corpuscular HGB Conc 32.7 g/dl (31.0-35.0); Mean Corpuscular Hemoglobin 27.9 pg (27.0-33.0); Mean Corpuscular Volume 85.4 fL (80.0-98.0); Mean Platelet Volume 9.8 fL (9.4-12.3); Monocytes Absolute Auto 0.5 X10*3/uL (0.1-1.2); Monocytes Percent Auto 5.3 % (2-11); Neutrophils Absolute Auto 7.4 x10*3/uL (2.0-8.3); Neutrophils Percent Auto 76.2 % (45-73); Platelet Count 264 X10*3/uL (160-400); Red Blood Count 4.26 X10*6/uL (4.20-5.50); Red Cell Distribution Width 13.9 % (11.0-16.0); White Blood Count 9.7 X10*3/uL (4.8-10.8)
[2024-04-20 10:21] LABS: Appearance Urine Cloudy; Color Urine Dark Yellow; Glucose Urine UA Negative (Negative); Leukocyte Esterase Urine Moderate (2+) (Negative); Nitrite Urine Negative (Negative); PH 7.5 (5.0-9.0); Specific Gravity - Urine 1.025 (1.005-1.025); UMIC TRIGGER UACC YES; Urine Blood Negative (Negative); Urine Ketones Negative (Negative); Urine Protein 30 (1+) mg/dL (Neg-Trace)
[2024-04-20 11:16] LABS: Bacteria Urine 4+ (None Seen); RBC Urine 0-2 /HPF (0-2); Squamous Epithelial Cell Urine >20 /HPF (0-2); UACC Culture Trigger YES; WBC Urine >50 /HPF (0-5)
[2024-04-20 11:18] LABS: TSH reflex Free T4 3.34 uIU/mL (0.32-4.0)
[2024-04-20 11:20] LABS: Anion Gap 11 (12-20)
[2024-04-20 11:24] LABS: Alanine Aminotransferase 12 U/L (0-31); Albumin Level 3.3 g/dL (3.5-5.0); Alkaline Phosphatase 103 U/L (39-117); Aspartate Amino Transferase 14 U/L (5-31); Bilirubin Total 0.3 mg/dL (0.0-1.0); Blood Urea Nitrogen 8 mg/dL (9-16); Calcium 8.5 mg/dL (8.4-10.2); Carbon Dioxide 20 mmol/L (22-29); Chloride 108 mmol/L (96-108); Cholesterol 208 mg/dL (<200); Estimated Glomerular Filt Rate > 60; Glucose Fasting 72 mg/dL (60-99); HDL Cholesterol 83 mg/dL (>40); LDL Cholesterol Calculated 92 mg/dL (<100); Potassium 4.3 mmol/L (3.3-5.1); Sodium 135 mmol/L (135-145); Total Protein 7.1 g/dL (6.5-8.0); Triglycerides 166 mg/dL (<150)
== END 2024-04-20 07:48 | disposition home or self-care (01) ==
LOC: HO.HMGCLDS 07:47
PROVIDERS: PCP Nurse Practitioner Family; Visit Provider Nurse Practitioner Family
DX: Z00.00 Encounter for general adult medical examination without abnormal findings (principal); R39.9 Unspecified symptoms and signs involving the genitourinary system
CPT/HCPCS: 36415; 80053; 80061; 81001; 84443; 85025; 87086

== ENCOUNTER 2024-06-03 07:23 | Outpatient (AMB) | payer OTHER, SELFPAY ==
--- OUTSIDE RECORDS SUMMARY | 2024-06-03 07:25 | XMS_ITS | Clinical Summary ---
Author Organization [address] Address [address] [place] [address] Phone Care Team Providers Care Infantryman Name Role Phone Bernardino Pham NP Primary Care Provider + [phone] Allergies Active Allergy Reactions Criticality Noted Date Comments Bacitracin Hives Low 05/08/2024 Medications vitamin iron fum-folic acid 27-0.8 mg per tablet Take 1 tablet by mouth 1 (one) time each day. 05/15/19 25 Discontinu ed(Stop Taking at Discharge) hydrOXYzine pamoate (VISTARIL) 25 mg capsule Take 1 capsule (25 mg total) by mouth 3 (three) times a day if needed for itching. 30 capsule 1 5 05/15/19 25 Discontinu ed(Stop Taking at Discharge) hydrOXYzine pamoate (VISTARIL) 25 mg capsule Take 1 capsule (25 mg total) by mouth 3 (three) times a day if needed for itching for up to 10 days. 5 05/21/19 25 Discontinu ed(Stop Taking at Discharge) vitamin iron fum-folic acid 28-0.8 mg per tablet Take 1 tablet by mouth 1 (one) time each day. 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 Overview (05/15/2024): FOB neg Resolved Problems Problem Noted Date Diagnosed Date Resolved Date Encounter for induction of labor 05/18/2024 05/21/2024 Obesity affecting in third trimester 05/15/2024 05/21/2024 Other specified hypothyroidism 05/15/2024 05/21/2024 Elevated blood pressure read ing in office without diagnosis of hypertension 05/08/20242024 Pelvic pain in , an tepartum, third trimester 04/18/2024 05/15/2024 34 weeks gestation of 04/18/2024 05/15/2024 Encounters Date Type Department Care Team Description 05/18/2024 11:59 PM EST Anesthesia Event [facility] L&D Procedure [address] [place] [phone] Graciela Shepherd MD 05/18/2024 5:09 PM EST - 05/21/2024 9:30 AM EST Hospital Encounter [address] [phone] Julio Umaña MD de La Guardia, Alfredo, MD Vaginal delivery (Primary Dx) Discharge Disposition: Home or Self Care 05/15/2024 10:55 AM EST - 05/15/2024 11:53 AM EST Hospital Encounter [address] [phone] Moises Camacho MD Eppsteiner, Erin E, MD Discharge Disposition: Home or Self Care 05/08/2024 10:02 AM EST - 05/08/2024 11:10 AM EST Hospital Encounter [address] [phone] Julio Figueroa MD Discharge Disposition: Home or Self Care 05/07/2024 Lab Requisition [facility] [address] [place] [id number] Julio Umaña MD Encounter for screening for infections with a predominantly sexual mode of transmission; Urinary tract infection, site not specified; Encounter for screening for Streptococcus B 04/18/2024 7:43 AM EST - 04/18/2024 9:26 AM EST Hospital Encounter [address] [phone] Nicolasa Morales DO Eppsteiner, Erin E, MD Pelvic pain in , antepartum, third trimester (Primary Dx) Discharge Disposition: Home or Self Care 04/18/2024 7:04 AM EST - 04/18/2024 8:21 AM EST [facility] Emergency [address] [place] [address] Pelvic pain (Primary Dx) Discharge Disposition: Another Health Care Institution Not Defined from Last 3 Months Surgical History Surgery Date Site/Laterality Comments WISDOM TOOTH EXTRACTION Medical History Medical History Date Comments Hypothyroidism Obesity, Class III, BMI 40-49.9 (morbid obesity) (CMS/HCC) Family History Medical History Relation Name Comments Brain cancer Brother Stroke Brother Relation Name Status Comments Brother Social History Tobacco Use Types Packs/Day Years Used Date Smoking Tobacco: Never Smokeless Tobacco: Never Tobacco Cessation:Counseling Given: Not Answered Housing Instability Answer Date Recorde d Are you worried that in the next 2 months you may not have stable housing? No 05/18/2024 Food Access & Nutrition Answer Date Rec orded Do you have access to a vari ety of food including fruits and vegetables? No 05/18/2024 Health Literacy Answer Date Recorded How often do you need to hav e someone help you when you read instructions, pamphlets, or other written material from your doctor or pharmacy? Never 05/18/2024 Caregiver: How often do you need to have someone help you when you read instructions, pamphlets, or other written material from your doctor or pharmacy? Not on file 05/18/2024 Financial Risk Answer Date Recorded How hard is it for you to pa y for the very basics like food, housing, medical care, and air conditioning / heating? Not very hard 05/18/2024 Transportation Answer Date Recorded Has the lack of transportati on kept you from meetings, work, or from getting things needed for daily living? No Has the lack of transportati on kept you from medical appointments or from getting medications? No 05/18/2024 Social Isolation Answer Date Recorded How often do you feel lonely or isolated from th ose around you? Never 05/18/2024 Food Risk Answer Date Recorded Within the past 12 months we worried whether our food would run out before we got money to buy more. Never true 05/18/2024 Within the past 12 months th e food we bought just didn't last and we didn't have money to get more. Never true 05/18/2024 Dependent Care Answer Date Recorded Do you need help finding or paying for care for your loved ones. For example, child therapist or elderly care for an older adult? No 05/18/2024 Education Answer Date Recorded Do you think completing more education or training, like finishing a GED, going to college, or learning a trade, would be helpful for you? No 05/18/2024 Employment and Income Answer Date Recor ded During the last four weeks, have you been actively looking for work? No 05/18/2024 Living Situation Answer Date Recorded What is your living situation? 0 05/18/2024 Interpersonal Safety Answer Date Record ed Physical Abuse 05/18/2024 Verbal Abuse 05/18/2024 Comments No Sex and Gender Information Value Date Recorded Sex Assigned at Female 05/15/2024 11:08 AM EST Legal Sex Female 12:51 AM EST Gender Identity Female 05/15/2024 11:08 AM EST Sexual Orientation Straight 05/15/2024 11 :08 AM EST Obstetrics History Para Term AB IAB SAB Ectopic Multiple Livin g Live Births 2 2 2 0 2 1 Date Outcome GA Total Labor Labor/2nd/3rd Weight Sex Type Anes PTL Edith A1 A5 Name Clin 2016 Term F Vag-S pont 2024 Term 39w 0d 3h 29m 2h 35m/0h 49m/0h 05m 3500 g (123.5 oz) M Vag-S pont Nitrou s Oxide N Livin g 6 9 Mily Wallac e Omar Fabi Munoz MD Complications:None Delivery Location:[facility] ([facility] Summary Episode Dates Number of Fetuses Estimated Date of Delivery 04/18/2024 - Present (06/03/2024) 1 05/26/2024 (set by Bhavna Rowland RN on 04/18/2024 based on Last Menstrual Period on 08/20/2023 (Exact Date)) Dating Summary Based On TAD GA Diff Last Menstrual Period on 08/20/2023 (Exact Date) 05/26/2024 Working Overview and Plan :Moss sex:Male Delivery Plans Planned delivery method:Vaginal Vitals Pregravid Weight Height TWG (As of 06/03/2024) Pregrav id BMI 1.829 m (72 ) Date GA Fund Present FHR Mvmt BP Weight Edema Alb Glu Ket Dil/ Eff/Sta 5 34w4d Inpatient data not displayed here. See encounter summary. 5 37w3d Inpatient data not displayed here. See encounter summary. 5 38w3d Inpatient data not displayed here. See encounter summary. 5 39w0d Inpatient data not displayed here. See encounter summary. Notes Progress Notes - Hospital En counter - 05/21/2024 - GA:39w0d 05/21/2024 - 39w0d - Jesse Lowery RN Patient discharged to home with and FOB. Patient verbalized understanding of discharge instructions and follow up appointments. No questions at this time. 05/20/2024 - 39w0susy - Isha Roberson MD Progress note Subjective Patient reports feeling well. She is ambulating well. Tolerating p.o. well. Light lochia. Mild discomfort relieved with NSAIDs. Nursing well. Objective Afebrile vital signs stable Abdomen soft obese nontender fundus firm and nontender at umbilicus. Lower extremities are benign calves soft nontender no cyanosis clubbing or edema. Assessment plan day 1 status post normal assisted vaginal delivery Patient is stable and is encouraged to ambulate and push fluids routine care. Education as needed. 05/19/2024 - 39w0susy - Moises Diaz MD OB Progress Note Subjective Patient undergoing IOL for GHTN, Additional problem list, subclinical hypothyroid and GBS negative. Objective HELLP labs wnl. PCR 0.23 (there was a previous PCR 0.39 but this was repeat and wnl 0.19) Reported normal exam, Asymptomatic and BP's wnl to mildly elevated. Current Medications: lactated Ringer's, 125 mL/hr, Last Rate: Stopped (05/18/241899) sodium chloride, 10 mL, intravenous, BID Last Recorded Vitals: Patient Vitals for the past 24 hrs: BP Temp Temp src Pulse Resp SpO2 Height Weight 05/18/24 1926 138/88 36.5 ??C (97.7 ??F) Temporal 97 18 98 % -- -- 05/18/241731 -- -- -- -- -- -- 1.829 m (72 ) 136 kg (300 lb) 05/18/241729 (!) 140/82 36.5 ??C (97.7 ??F) Temporal 104 18 100 % -- -- Input/Output: I/O this shift: In: 660.4 [P.O.:600; I.V.:60.4] Out: 100 [Urine:100] Intake/Output Summary (Last 24 hours) at 05/18/20242049 Last data filed at 05/18/20241899 Gross per 24 hour Intake 660.42 ml Output 200 ml Net 460.42 ml OBGyn Exam Last Cervical Exam: 1 cm dilated, 50 % effaced, -3 station. The fetus is in a presentation and position. Heart Monitoring Info: Baseline 135, moderate variability, positive accelerations and no decelerations noted. BR cat 1 Lab Results: Recent Results (from the past 48 hours) Complete blood count Collection Time: 05/18/24 6:06 PM Result Value Ref Range WBC 12.7 (H) 4.8 - 10.8 K/mcL RBC 4.20 3.80 - 4.80 M/mcL Hemoglobin 12.2 11.5 - 16.0 g/dL Hematocrit 36.3 35.0 - 47.0 % MCV 86.0 79.0 - 98.0 FL MCH 28.9 27.0 - 32.0 pcg MCHC 33.6 32.0 - 37.0 g/dL RDW 14.0 11.0 - 15.0 % Platelets 259 130 - 400 K/mcL MPV 9.7 7.0 - 11.0 FL NRBC 0.0 <1.0 % NRBC Absolute 0.00 <0.10 K/mcL Type and screen Collection Time: 05/18/24 6:06 PM Result Value Ref Range ABO Group AB Rh Type Positive Antibody Screen Negative Treponema pallidum antibody with reflex to RPR and particle agglutination Collection Time: 05/18/24 6:06 PM Result Value Ref Range T. Pallidum Antibodies Negative Negative Hepatic function panel Collection Time: 05/18/24 6:06 PM Result Value Ref Range Total Protein 7.1 6.0 - 8.0 g/dL Albumin 3.0 (L) 3.2 - 5.0 g/dL Total Bilirubin 0.3 0.0 - 1.4 mg/dL Bilirubin, Direct <0.1 0.0 - 0.3 mg/dL Bilirubin, Indirect ALT (SGPT) 17 10 - 60 unit/L AST (SGOT) 14 10 - 42 unit/L Alkaline Phosphatase 131 (H) 42 - 121 unit/L Thyroid stimulating hormone Collection Time: 05/18/24 6:06 PM Result Value Ref Range TSH 4.78 (H) 0.40 - 4.00 mcIU/mL T4, Free Collection Time: 05/18/24 6:06 PM Result Value Ref Range Free T4 0.94 0.70 - 1.80 ng/dL T3, Free Collection Time: 05/18/24 6:06 PM Result Value Ref Range T3, Free 271 230 - 420 pcg/dL Creatinine, serum Collection Time: 05/18/24 6:06 PM Result Value Ref Range Creatinine 0.60 0.50 - 1.10 mg/dL eGFR 122 >=60 mL/min/1.73m2 Uric acid Collection Time: 05/18/24 6:06 PM Result Value Ref Range Uric Acid 5.2 3.1 - 7.8 mg/dL Protein and creatinine with ratio, urine Collection Time: 05/18/24 6:28 PM Result Value Ref Range Protein, Urine 40 mg/dL Prot/Creat, Ur 0.23 (H) <=0.20 mg/mg creat Creatinine, Urine 175.0 mg/dL Imaging Results: No image results found. Assessment/Plan Principal Problem: Encounter for induction of labor Date Noted: 05/18/[address] for cervical ripening. Ok to further augment with oxytocin +/- AROM when appropriate and safe. OK for pain management PRN including epidural Cont to monitor BP's and for any s/sx of severe pre E I have reviewed her chart and she is appropriate for CNM care in consultation with physician as clinically needed. I am available for consultation and intervention. Moises Camacho MD Last Filed Vital Signs Vital Sign Reading Time Taken Comments Blood Pressure 128/80 05/21/2024 8:15 AM EST Pulse 90 05/21/2024 8:15 AM EST Temperature 36.8 ??C (98.2 ??F) 05/21/2024 8:15 AM ES T Respiratory Rate 16 05/21/2024 8:15 AM EST Oxygen Saturation 98% 05/21/2024 8:15 AM EST Inhaled Oxygen Concentration - - Weight 136 kg (300 lb) 05/18/2024 5:32 PM EST Height 182.9 cm (6') 05/18/2024 5:32 PM EST Body Mass Index 40.69 05/18/2024 5:32 PM EST Plan of Treatment Health Maintenance Due Date Last Done Comments Hepatitis B Vaccines (1 of 3 - 19+ 3-dose series) 12/06/2010 Cervical Cancer Screening: Pap Smear 12/06/2012 COVID-19 Vaccine ( season) 2023 04/14/2021, 07/16/2020, 06/24/2020 Cholesterol Screening (Lipid Panel) 02/05/2024 Depression Screening 02/05/2024 HIV Screening 02/05/2024 Hepatitis C Screening 02/05/2024 Hypertension/CHF/CAD Annual BMP Blood Test 05/18/2025 05/18/2024, 04/29/2024 Social Influencers of Health Screening 05/18/2025 05/18/2024 DTaP,Tdap,and Td Vaccines (2 - Td or Tdap) 05/27/2029 05/27/2019 Influenza Vaccine Completed 03/02/2024, , 01/30/2019, Additional history exists HIB Vaccines Aged Out No longer eligi ble based on patient's age to complete this topic HPV Vaccines Aged Out No longer eligi ble based on patient's age to complete this topic Hepatitis A Vaccines Aged Out No long er eligible based on patient's age to complete this topic IPV Vaccines Aged Out No longer eligi ble based on patient's age to complete this topic MMR Vaccines Aged Out No longer eligi ble based on patient's age to complete this topic Meningococcal ACWY Vaccine Aged Out N o longer eligible based on patient's age to complete this topic Meningococcal B Vacine Aged Out No lo nger eligible based on patient's age to complete this topic Pneumococcal Vaccine: Pediatrics (0 to 5 Years) and At-Risk Patients (6 to 64 Years) Aged Out No longer eligible based on patient's age to complete this topic RSV Immunization Patients Under 20 months Aged Out No longer eligible based on patient's age to complete this topic Varicella Vaccines Aged Out No longer eligible based on patient's age to complete this topic Procedures Procedure Name Priority Date/Time Associated Diagnosis Comments PROTEIN AND CREATININE WITH RATIO, URINE STAT 05/18/2024 6:28 PM EST URIC ACID STAT Add-on 05/18/2024 6:06 PM EST CREATININE, SERUM STAT Add-on 05/18/2024 6:0 6 PM EST TRIIODOTHYRONINE FREE STAT Add-on 05/18/2024 6:06 PM EST THYROXINE FREE STAT Add-on 05/18/2024 6:06 PM EST THYROID STIMULATING HORMONE STAT Add-on 05/18/2024 6:06 PM EST HEPATIC FUNCTION PANEL Routine 6:06 PM EST TREPONEMA PALLIDUM ANTIBODY WITH REFLEX TO RPR AND PARTICLE AGGLUTINATION STAT 05/18/2024 6:06 PM EST TYPE AND SCREEN STAT 05/18/2024 6:06 PM EST COMPLETE BLOOD COUNT STAT 05/18/2024 6:06 PM EST URINALYSIS WITH REFLEX MICROSCOPIC Routine 05/07/2024 11:06 AM EST Essential hypertension, malignant URINALYSIS WITH REFLEX MICROSCOPIC Routine 05/07/2024 11:06 AM EST Essential hypertension, malignant PROTEIN AND CREATININE WITH RATIO, URINE Routine 05/07/2024 11:06 AM EST Essential hypertension, malignant CULTURE URINE Routine 05/07/2024 11:06 AM EST Essential hypertension, malignant URINALYSIS WITH REFLEX MICROSCOPIC Routine 05/07/2024 12:00 AM EST Encounter for screening for infections with a predominantly sexual mode of transmission Urinary tract infection, site not specified Encounter for screening for Streptococcus B STREP B PCR Routine 05/07/2024 12:00 AM EST Encounter for screening for infections with a predominantly sexual mode of transmission Urinary tract infection, site not specified Encounter for screening for Streptococcus B URINALYSIS WITH REFLEX MICROSCOPIC Routine 05/07/2024 12:00 AM EST Encounter for screening for infections with a predominantly sexual mode of transmission Urinary tract infection, site not specified Encounter for screening for Streptococcus B CHLAMYDIA TRACHOMATIS AND NEISSERIA GONORRHOEAE PCR Routine 05/07/2024 12:00 AM EST Encounter for screening for infections with a predominantly sexual mode of transmission Urinary tract infection, site not specified Encounter for screening for Streptococcus B CULTURE URINE Routine 05/07/2024 12:00 AM EST Encounter for screening for infections with a predominantly sexual mode of transmission Urinary tract infection, site not specified Encounter for screening for Streptococcus B BUN Routine 04/29/2024 9:36 AM EST Hypertension COMPLETE BLOOD COUNT Routine 04/29/2024 9:36 AM EST Hypertension CREATININE, SERUM Routine 04/29/2024 9:3 6 AM EST Hypertension ASPARTATE AMINOTRANSFERASE Routine 04/29/2024 9:36 AM EST Hypertension ALANINE AMINOTRANSFERASE Routine 04/29/2024 9:36 AM EST Hypertension URIC ACID Routine 04/29/2024 9:36 AM EST Hypertension URINALYSIS WITH REFLEX MICROSCOPIC Routine 04/27/2024 10:58 AM EST Hypertension URINALYSIS WITH REFLEX MICROSCOPIC Routine 04/27/2024 10:58 AM EST Hypertension PROTEIN AND CREATININE WITH RATIO, URINE Routine 04/27/2024 10:58 AM EST Hypertension HOOD URINE CULTURE TUBE Routine 04/18/19 25 9:07 AM EST URINALYSIS WITH REFLEX MICROSCOPIC AND CULTURE Routine 04/18/2024 9:07 AM EST URINALYSIS WITH REFLEX MICROSCOPIC AND CULTURE Routine 04/18/2024 9:07 AM EST CULTURE URINE Routine 04/18/2024 9:07 AM EST TRICHOMONAS VAGINALIS ANTIGEN STAT 04/18/2024 8:41 AM EST WET PREP, GENITAL STAT 04/18/2024 8:4 1 AM EST CHLAMYDIA TRACHOMATIS AND NEISSERIA GONORRHOEAE PCR Routine 04/18/2024 8:41 AM EST HOOD URINE CULTURE TUBE Routine 03/16/20 24 9:34 AM EST Poor growth, affecting management of mother, antepartum condition or complication URINALYSIS WITH REFLEX MICROSCOPIC AND CULTURE Routine 03/16/2024 9:34 AM EST Poor growth, affecting management of mother, antepartum condition or complication URINALYSIS WITH REFLEX MICROSCOPIC AND CULTURE Routine 03/16/2024 9:34 AM EST Poor growth, affecting management of mother, antepartum condition or complication CULTURE URINE Routine 03/16/2024 9:34 AM EST Poor growth, affecting management of mother, antepartum condition or complication TREPONEMA PALLIDUM ANTIBODY WITH REFLEX TO RPR AND PARTICLE AGGLUTINATION Routine 03/16/2024 9:29 AM EST Research requested ultrasound scan from Last 3 Months Results * (ABNORMAL) Protein and creatinine with ratio, urine (05/18/2024 6:28 PM EST) Only the most recent of3 resultswithin the time period is included. Protein, Urine 40 mg/dL LAB CHEMISTRY METHOD 05/18/2024 7:13 PM EST [facility] Prot/Creat, Ur 0.23(H) <=0.20 mg/mg creat LAB CHEMISTRY METHOD 05/18/2024 7:13 PM EST [facility] Creatinine, Urine 175.0 mg/dL LAB CHEMISTRY METHOD 05/18/2024 7:13 PM EST [facility] Urine Urine specimen obtained by clean catch procedure / Unknown 05/18/2024 6:28 PM EST 05/18/2024 6:28 PM EST Rahda Blackburn [facility] URINE ORDERABLES Final Res ult [facility] [address] [place] [address], * Treponema pallidum antibody with reflex to RPR and particle agglutination (05/18/2024 6:06 PM EST) Only the most recent of2 resultswithin the time period is included. Pathologist [facility] T. Pallidum Antibodies Negative Negative LAB CHEMISTRY METHOD 05/18/2024 8:35 PM EST [facility] Blood Venous blood specimen / Unknown Venipuncture / Unknown 05/18/2024 6:06 PM EST 05/18/2024 6:29 PM EST us Radha Blackburn [facility] BLOOD ORDERABLES Final Res ult Performing Organization Address City/[facility]/ZIP Co de Phone Number [facility] [address] [place] [address], [place] [phone] * Creatinine, serum (05/18/2024 6:06 PM EST) Only the most recent of2 resultswithin the time period is included. Creatinine 0.60 0.50 - 1.10 mg/dL LAB CHEMISTRY METHOD 05/18/2024 7:46 PM EST [facility] eGFR 122 >=60 mL/min/1. 73m2 LAB CHEMISTRY METHOD 05/18/2024 7:46 PM EST [facility] Comment:Calculation based on the??Chronic Kidney Disease Epidemiology Collaboration (CKD-EPI) equation refit??without adjustment for race. Blood Venous blood specimen / Unknown Venipuncture / Unknown 05/18/2024 6:06 PM EST 05/18/2024 6:29 PM EST us Radha Blackburn [facility] BLOOD ORDERABLES Final Res ult Performing Organization Address [facility]/ZIP Co de Phone Number [facility] [address] [place] [address], [place] [phone] * (ABNORMAL) Complete blood count (05/18/2024 6:06 PM EST) Only the most recent of2 resultswithin the time period is included. WBC 12.7(H) 4.8 - 10.8 K/mcL LAB HEMETOLOGY METHOD 05/18/2024 6:37 PM EST [facility] RBC 4.20 3.80 - 4.80 M/mcL LAB HEMETOLOGY METHOD 05/18/2024 6:37 PM EST [facility] Hemoglobin 12.2 11.5 - 16.0 g/dL LAB HEMETOLOGY METHOD 05/18/2024 6:37 PM EST [facility] Hematocrit 36.3 35.0 - 47.0 % LAB HEMETOLOGY METHOD 05/18/2024 6:37 PM [facility] MCV 86.0 79.0 - 98.0 FL LAB HEMETOLOGY METHOD 05/18/2024 6:37 PM [facility] MCH 28.9 27.0 - 32.0 pcg LAB HEMETOLOGY METHOD 05/18/2024 6:37 PM EST [facility] MCHC 33.6 32.0 - 37.0 g/dL LAB HEMETOLOGY METHOD 05/18/2024 6:37 PM [facility] RDW 14.0 11.0 - 15.0 % LAB HEMETOLOGY METHOD 05/18/2024 6:37 PM [facility] Platelets 259 130 - 400 K/mcL LAB HEMETOLOGY METHOD 05/18/2024 6:37 PM EST [facility] MPV 9.7 7.0 - 11.0 FL LAB HEMETOLOGY METHOD 05/18/2024 6:37 PM [facility] NRBC 0.0 <1.0 % LAB HEMETOLOGY METHOD 05/18/2024 6:37 PM [facility] NRBC Absolute 0.00 <0.10 K/mcL LAB HEMETOLOGY METHOD 05/18/2024 6:37 PM [facility] Blood Venous blood specimen / Unknown Venipuncture / Unknown 05/18/2024 6:06 PM EST 05/18/2024 6:28 PM EST us Radha Blackburn CNM LAB BLOOD ORDERABLES Final Res ult [facility] [address] [place] [address], * Type and screen (05/18/2024 6:06 PM EST) ABO Group AB 05/18/2024 7:15 PM EST [facility] Rh Type Positive 05/18/2024 7:15 PM EST [facility] Antibody Screen Negative 05/18/2024 7:15 PM EST [facility] Blood Venous blood specimen / Unknown Venipuncture / Unknown 05/18/2024 6:06 PM EST 05/18/2024 6:28 PM EST us Garcia Perla Blackburn [facility] BLOOD BANK TEST ORDERABLES Final Result Performing Organization Address [facility]/ZIP Co de Phone Number [facility] [address] [place] [address], [place] [phone] * Uric acid (05/18/2024 6:06 PM EST) Only the most recent of2 resultswithin the time period is included. Pathologist [facility] Uric Acid 5.2 3.1 - 7.8 mg/dL LAB CHEMISTRY METHOD 05/18/2024 7:46 PM EST [facility] Blood Venous blood specimen / Unknown Venipuncture / Unknown 05/18/2024 6:06 PM EST 05/18/2024 6:29 PM EST us Radha Blackburn [facility] BLOOD ORDERABLES Final Res ult [facility] [address] [place] [address], [place] [phone] * T3, Free (05/18/2024 6:06 PM EST) T3, Free 271 230 - 420 pcg/dL LAB CHEMISTRY METHOD 05/18/2024 8:24 PM EST [facility] Blood Venous blood specimen / Unknown Venipuncture / Unknown 05/18/2024 6:06 PM EST 05/18/2024 6:29 PM EST us Radha Blackburn [facility] BLOOD ORDERABLES Final Res ult Performing Organization Address [facility]/ZIP Co de Phone Number [facility] [address] [place] [address], [place] [phone] * (ABNORMAL) Thyroid stimulating hormone (05/18/2024 6:06 PM EST) [facility] TSH 4.78(H) 0.40 - 4.00 mcIU/mL LAB CHEMISTRY METHOD 05/18/2024 8:01 PM EST [facility] Blood Venous blood specimen / Unknown Venipuncture / Unknown 05/18/2024 6:06 PM EST 05/18/2024 6:29 PM EST us Radha Blackburn [facility] BLOOD ORDERABLES Final Res ult Performing Organization Address [facility] Co de Phone Number [facility] [address] [place] [address], [place] [phone] * T4, Free (05/18/2024 6:06 PM EST) [facility] Free T4 0.94 0.70 - 1.80 ng/dL LAB CHEMISTRY METHOD 05/18/2024 8:01 PM EST [facility] Blood Venous blood specimen / Unknown Venipuncture / Unknown 05/18/2024 6:06 PM EST 05/18/2024 6:29 PM EST us Radha Blackburn [facility] BLOOD ORDERABLES Final Res ult Performing Organization Address City/[facility]/ZIP Co de Phone Number [facility] [address] [place] [address], [place] [phone] * (ABNORMAL) Hepatic function panel (05/18/2024 6:06 PM EST) [facility] Total Protein 7.1 6.0 - 8.0 g/dL LAB CHEMISTRY METHOD 05/18/2024 7:18 PM [facility] Albumin 3.0(L) 3.2 - 5.0 g/dL LAB CHEMISTRY METHOD 05/18/2024 7:18 PM [facility] Total Bilirubin 0.3 0.0 - 1.4 mg/dL LAB CHEMISTRY METHOD 05/18/2024 7:18 PM [facility] Bilirubin, Direct <0.1 0.0 - 0.3 mg/dL LAB CHEMISTRY METHOD 05/18/2024 7:18 PM [facility] Bilirubin, Indirect LAB CHEMISTRY METHOD 05/18/2024 7:18 PM [facility] Comment:Unable to calculate Indirect Bilirubin. ALT (SGPT) 17 10 - 60 unit/L LAB CHEMISTRY METHOD 05/18/2024 7:18 PM [facility] AST (SGOT) 14 10 - 42 unit/L LAB CHEMISTRY METHOD 05/18/2024 7:18 PM [facility] Alkaline Phosphatase 131(H) 42 - 121 unit/L LAB CHEMISTRY METHOD 05/18/2024 7:18 PM [facility] Blood Venous blood specimen / Unknown Venipuncture / Unknown 05/18/2024 6:06 PM EST 05/18/2024 6:29 PM EST [facility] BLOOD ORDERABLES Final Res ult [facility] [address] [place] [address], * (ABNORMAL) Urinalysis with reflex microscopic (05/07/2024 11:06 AM EST) Only the most recent of3 resultswithin the time period is included. [facility] Specific Mcloud Urine 1.031(H) 1.003 - 1.030 LAB URINALYSIS - AUTOMATED METHOD 05/07/2024 12:48 PM [facility] pH, Urine 6.5 5.0 - 8.0 pH LAB URINALYSIS - AUTOMATED METHOD 05/07/2024 12:48 PM [facility] Leukocytes, Urine Trace(A) Negative LAB URINALYSIS - AUTOMATED METHOD 05/07/2024 12:48 PM [facility] Nitrite, Urine Negative Negative LAB URINALYSIS - AUTOMATED METHOD 05/07/2024 12:48 PM [facility] Protein, Urine 30(A) <=Trace mg/dL LAB URINALYSIS - AUTOMATED METHOD 05/07/2024 12:48 PM [facility] Glucose, Urine Negative Negative mg/dL LAB URINALYSIS - AUTOMATED METHOD 05/07/2024 12:48 PM [facility] Ketones, Urine Trace(A) Negative mg/dL LAB URINALYSIS - AUTOMATED METHOD 05/07/2024 12:48 PM [facility] Urobilinogen, Urine 1.0 0.2 - 1.0 mg/dL LAB URINALYSIS - AUTOMATED METHOD 05/07/2024 12:48 PM [facility] Bilirubin, Urine Negative Negative LAB URINALYSIS - AUTOMATED METHOD 05/07/2024 12:48 PM [facility] Blood, Urine Negative Negative LAB URINALYSIS - AUTOMATED METHOD 05/07/2024 12:48 PM [facility] RBC, Urine 1.1 0 - 4 /HPF LAB URINALYSIS - AUTOMATED METHOD 05/07/2024 12:48 PM [facility] WBC, Urine 4.9(H) 0 - 4 /HPF LAB URINALYSIS - AUTOMATED METHOD 05/07/2024 12:48 PM [facility] Squamous Epithelial, Urine >100(H) 0 - 60 /LPF LAB URINALYSIS - AUTOMATED METHOD 05/07/2024 12:48 PM [facility] Bacteria, Urine Negative Negative /HPF LAB URINALYSIS - AUTOMATED METHOD 05/07/2024 12:48 PM [facility] Hyaline Casts, Urine 7.6(H) 0 - 3 /LPF LAB URINALYSIS - AUTOMATED METHOD 05/07/2024 12:48 PM [facility] Urine Urine specimen obtained by clean catch procedure / Unknown Non-blood Collection / Unknown 05/07/2024 11:06 AM EST 05/07/2024 11:29 AM EST us Julio Umaña MD LAB URINE ORDERABLES Final Res ult Performing Organization Address [facility]/ZIP Co de Phone Number [facility] [address] [place] [address], [place] [phone] * Culture urine (05/07/2024 11:06 AM EST) Only the most recent of4 resultswithin the time period is included. Pathologist [facility] Culture, Urine 10,000-49,000 CFU/mL Mixed urogenital jose, no uropathogens present. Suggest repeat specimen if clinically indicated. 05/08/2024 10:53 AM [facility] Urine Urine specimen from urethra / Unknown Non-blood Collection / Unknown 05/07/2024 11:06 AM EST 05/07/2024 11:29 AM EST us Julio Umaña MD LAB MICROBIOLOGY - GENERAL ORD ERABLES Final Result [facility] [address] [place] [address], [place] [phone] * Chlamydia trachomatis and Neisseria gonorrhoeae molecular study (05/07/2024 12:00 AM EST) Only the most recent of2 resultswithin the time period is included. Neisseria gonorrhoeae PCR Negative Negative LAB MOLECULAR DIAGNOSTICS METHOD 05/07/2024 4:47 PM [facility] Chlamydia trachomatis PCR Negative Negative LAB MOLECULAR DIAGNOSTICS METHOD 05/07/2024 4:47 PM EST [facility] Swab Cervix uteri structure / Unknown 05/07/2024 05/07/2024 12:49 PM EST us Julio Umaña MD LAB MICROBIOLOGY - GENERAL ORD ERABLES Final Result Performing Organization Address City/[facility]/ZIP Co de Phone Number [facility] [address] [place] [address], [place] [phone] * Strep B molecular study (05/07/2024 12:00 AM EST) [facility] Grp B Strep PCR Not Detected Not Detected LAB MICROBIOLOGY METHOD 05/08/2024 9:44 AM EST [facility] Swab Vaginal swab / Unknown 05/07/2024 05/07/2024 12:49 PM EST us Julio Umaña MD LAB BLOOD ORDERABLES Final Res ult Performing Organization Address City/[facility]/ZIP Co de Phone Number [facility] [address] [place] [address], [place] [phone] * BUN (04/29/2024 9:36 AM EST) [facility] BUN 9 5 - 25 mg/dL LAB CHEMISTRY METHOD 04/29/2024 11:48 AM EST [facility] Blood Venous blood specimen / Unknown Venipuncture / Unknown 04/29/2024 9:36 AM EST 04/29/2024 10:16 AM EST us Julio Umaña MD LAB BLOOD ORDERABLES Final Res ult Performing Organization Address City/[facility]/ZIP Co de Phone Number [facility] [address] [place] [address], [place] [phone] * Alanine aminotransferase (04/29/2024 9:36 AM EST) [facility] ALT (SGPT) 15 10 - 60 unit/L LAB CHEMISTRY METHOD 04/29/2024 11:48 AM EST [facility] Blood Venous blood specimen / Unknown Venipuncture / Unknown 04/29/2024 9:36 AM EST 04/29/2024 10:16 AM EST us Julio Umaña MD LAB BLOOD ORDERABLES Final Res ult Performing Organization Address City/[facility]/ZIP Co de Phone Number [facility] [address] [place] [address], [place] [phone] * (ABNORMAL) Aspartate aminotransferase (04/29/2024 9:36 AM EST) [facility] AST (SGOT) 7(L) 10 - 42 unit/L LAB CHEMISTRY METHOD 04/29/2024 11:48 AM EST [facility] Blood Venous blood specimen / Unknown Venipuncture / Unknown 04/29/2024 9:36 AM EST 04/29/2024 10:16 AM EST us Julio Umaña MD LAB BLOOD ORDERABLES Final Res ult Performing Organization Address [facility] de Phone Number [facility] [address] [place] [address], [place] [phone] * (ABNORMAL) Urinalysis with reflex microscopic and culture (04/18/2024 9:07 AM EST) Only the most recent of2 resultswithin the time period is included. [facility] Specific Mcloud Urine 1.010 1.003 - 1.030 LAB URINALYSIS - AUTOMATED METHOD 04/18/2024 10:15 AM EST [facility] pH, Urine 7.0 5.0 - 8.0 pH LAB URINALYSIS - AUTOMATED METHOD 04/18/2024 10:15 AM [facility] Leukocytes, Urine Small(A) Negative LAB URINALYSIS - AUTOMATED METHOD 04/18/2024 10:15 AM [facility] Nitrite, Urine Negative Negative LAB URINALYSIS - AUTOMATED METHOD 04/18/2024 10:15 AM [facility] Protein, Urine Negative <=Trace mg/dL LAB URINALYSIS - AUTOMATED METHOD 04/18/2024 10:15 AM [facility] Glucose, Urine Negative Negative mg/dL LAB URINALYSIS - AUTOMATED METHOD 04/18/2024 10:15 AM [facility] Ketones, Urine Negative Negative mg/dL LAB URINALYSIS - AUTOMATED METHOD 04/18/2024 10:15 AM [facility] Urobilinogen, Urine 0.2 0.2 - 1.0 mg/dL LAB URINALYSIS - AUTOMATED METHOD 04/18/2024 10:15 AM [facility] Bilirubin, Urine Negative Negative LAB URINALYSIS - AUTOMATED METHOD 04/18/2024 10:15 AM [facility] Blood, Urine Negative Negative LAB URINALYSIS - AUTOMATED METHOD 04/18/2024 10:15 AM [facility] RBC, Urine 0.5 0 - 4 /HPF LAB URINALYSIS - AUTOMATED METHOD 04/18/2024 10:15 AM [facility] WBC, Urine 7.0(H) 0 - 4 /HPF LAB URINALYSIS - AUTOMATED METHOD 04/18/2024 10:15 AM [facility] Squamous Epithelial, Urine 99(H) 0 - 60 /LPF LAB URINALYSIS - AUTOMATED METHOD 04/18/2024 10:15 AM [facility] Bacteria, Urine Few(A) Negative /HPF LAB URINALYSIS - AUTOMATED METHOD 04/18/2024 10:15 AM [facility] Hyaline Casts, Urine 0.8 0 - 3 /LPF LAB URINALYSIS - AUTOMATED METHOD 04/18/2024 10:15 AM [facility] Urine Urine specimen obtained by clean catch procedure / Unknown Non-blood Collection / Unknown 04/18/2024 9:07 AM EST 04/18/2024 9:16 AM EST [facility] LAB URINE ORDERABLES Final Re sult [facility] [address] [place] [address], [place] [phone] * Hood urine culture tube (04/18/2024 9:07 AM EST) Only the most recent of2 resultswithin the time period is included. Extra Tube Hold for add-ons. 04/18/2024 11:01 AM EST [facility] Comment:Auto resulted. Urine Urine specimen obtained by clean catch procedure / Unknown Non-blood Collection / Unknown 04/18/2024 9:07 AM EST 04/18/2024 9:16 AM EST [facility] LAB URINE ORDERABLES Final Re sult Performing Organization Address City/[facility]/ZIP Co de Phone Number [facility] [address] [place] [address], [place] [phone] * Trichomonas vaginalis antigen (04/18/2024 8:41 AM EST) Trichomonas vaginalis Negative Negative 04/18/2024 9:41 AM EST [facility] Swab Vaginal structure / Unknown Non-blood Collection / Unknown 04/18/2024 8:41 AM EST 04/18/2024 9:16 AM EST [facility] LAB MICROBIOLOGY - GENERAL OR DERABLES Final Result [facility] [address] [place] [address], [place] [phone] * Wet prep, genital (04/18/2024 8:41 AM EST) Clue Cells, Wet Prep Negative Negative 04/18/2024 9:28 AM EST [facility] Yeast, Wet Prep Negative Negative 04/18/2024 9:28 AM EST [facility] Trichomonas, Wet Prep Indeterminate Negative 04/18/2024 9:28 AM EST [facility] Comment:Refer to Trichomonas antigen. Swab Vaginal structure / Unknown Non-blood Collection / Unknown 04/18/2024 8:41 AM EST 04/18/2024 9:16 AM EST us Guillaume Dumont CNM LAB MICROBIOLOGY - GENERAL OR DERABLES Final Result [facility] [address] [place] [address], from Last 3 Months Insurance [facility] [place] [phone] Advance Directives * Full Code - Default (Latest Code Status on File) Date Activated Date Inactivated Comments 05/19/2024 3:17 PM 05/21/2024 12:46 PM This is ord er is used when code status has not been discussed with the patient, or code status is otherwise unknown/unconfirmed To update the patient's code status, place a code status order. Do not modify or discontinue any currently active code status orders. * Full Code - Confirmed Date Activated Date Inactivated Comments 05/18/2024 5:47 PM 05/19/2024 12:04 PM This code s tatus was ascertained in the following way: Code status discussion: discussion with patient To update the patient's code status, place a code status order. Do not modify or discontinue any currently active code status orders. * Full Code - Default Date Activated Date Inactivated Comments 05/15/2024 11:38 AM 05/15/2024 2:09 PM This is ord er is used when code status has not been discussed with the patient, or code status is otherwise unknown/unconfirmed To update the patient's code status, place a code status order. Do not modify or discontinue any currently active code status orders. * Full Code - Default Date Activated Date Inactivated Comments 05/08/2024 10:33 AM 05/08/2024 1:20 PM This is order is used when code status has not been discussed with the patient, or code status is otherwise unknown/unconfirmed To update the patient's code status, place a code status order. Do not modify or discontinue any currently active code status orders. * Full Code - Default Date Activated Date Inactivated Comments 04/18/2024 8:25 AM 04/18/2024 11:39 AM This is ord er is used when code status has not been discussed with the patient, or code status is otherwise unknown/unconfirmed To update the patient's code status, place a code status order. Do not modify or discontinue any currently active code status orders. Care Teams Infantryman Relationship Specialty Start Date End Date [facility] [place] P[facility] - General Family Medicine 02/19/24
--- OUTSIDE RECORDS SUMMARY | 2024-06-03 07:25 | XMS_ITS | Encounter Summary ---
Author Organization [facility] Address [address] [place] [address] Care Team Providers Care Experimental Aircraft Mechanic Name Role Phone Bernardino Pham NP Primary Care Provider + [phone] Encounter Details Date Type Department Care Team (Late st Contact Info) Description 03/02/2024 Lab Requisition [facility] [address] [place] [address] Isha Hollis MD [address] [facility] [place] [address] [place] [address] [phone] Urinary tract infection, site not specified Social History Tobacco Use Types Packs/Day Years Used Date Smoking Tobacco: Never Assessed Comments Unknown Sex and Gender Information Value Date Recorded Sex Assigned at Female 05/15/2024 11:08 AM EST Legal Sex Female 12:51 AM EST Gender Identity Female 05/15/2024 11:08 AM EST Sexual Orientation Straight 05/15/2024 11 :08 AM EST documented as of this encounter Plan of Treatment Not on file documented as of this encounter Procedures Procedure Name Priority Date/Time Associated Diagnosis Comments URINALYSIS WITH REFLEX MICROSCOPIC Routine 03/02/2024 12:00 AM EST Urinary tract infection, site not specified URINALYSIS WITH REFLEX MICROSCOPIC Routine 03/02/2024 12:00 AM EST Urinary tract infection, site not specified CULTURE URINE Routine 03/02/2024 12:00 AM EST Urinary tract infection, site not specified documented in this encounter Results * (ABNORMAL) Urinalysis with reflex microscopic (03/02/2024 12:00 AM EST) Specific [place] Urine 1.015 1.003 - 1.030 LAB URINALYSIS - AUTOMATED METHOD 03/02/2024 7:01 PM [facility] pH, Urine 7.0 5.0 - 8.0 pH LAB URINALYSIS - AUTOMATED METHOD 03/02/2024 7:01 PM [facility] Leukocytes, Urine Small(A) Negative LAB URINALYSIS - AUTOMATED METHOD 03/02/2024 7:01 PM [facility] Nitrite, Urine Negative Negative LAB URINALYSIS - AUTOMATED METHOD 03/02/2024 7:01 PM [facility] Protein, Urine Trace <=Trace mg/dL LAB URINALYSIS - AUTOMATED METHOD 03/02/2024 7:01 PM [facility] Glucose, Urine Negative Negative mg/dL LAB URINALYSIS - AUTOMATED METHOD 03/02/2024 7:01 PM [facility] Ketones, Urine Negative Negative mg/dL LAB URINALYSIS - AUTOMATED METHOD 03/02/2024 7:01 PM [facility] Urobilinogen , Urine 0.2 0.2 - 1.0 mg/dL LAB URINALYSIS - AUTOMATED METHOD 03/02/2024 7:01 PM [facility] Bilirubin, Urine Negative Negative LAB URINALYSIS - AUTOMATED METHOD 03/02/2024 7:01 PM [facility] Blood, Urine Negative Negative LAB URINALYSIS - AUTOMATED METHOD 03/02/2024 7:01 PM [facility] RBC, Urine 2.7 0 - 4 /HPF LAB URINALYSIS - AUTOMATED METHOD 03/02/2024 7:01 PM [facility] WBC, Urine 34.3(H) 0 - 4 /HPF LAB URINALYSIS - AUTOMATED METHOD 03/02/2024 7:01 PM [facility] Squamous Epithelial, Urine >100(H) 0 - 60 /LPF LAB URINALYSIS - AUTOMATED METHOD 03/02/2024 7:01 PM [facility] Non-Squamous Epithelial, Urine 2-5 Transitional epithelial cells. /LPF LAB URINALYSIS - AUTOMATED METHOD 03/02/2024 7:01 PM [facility] Bacteria, Urine Many(A) Negative /HPF LAB URINALYSIS - AUTOMATED METHOD 03/02/2024 7:01 PM [facility] Hyaline Casts, Urine 0.0 0 - 3 /LPF LAB URINALYSIS - AUTOMATED METHOD 03/02/2024 7:01 PM [facility] Urine Urine specimen obtained by clean catch procedure / Unknown Non-blood Collection / Unknown 03/02/2024 03/02/2024 6:08 PM EST us Isha Hollis MD LAB URINE ORDERABLES Angel jumana Result - Final Performing Organization Address City/[facility]/ZIP Co de Phone Number [facility] [address] [place] [address], [place] [phone] * Culture urine (03/02/2024 12:00 AM EST) Culture, Urine No growth 03/03/2024 1:42 PM [facility] Urine Urine specimen obtained by clean catch procedure / Unknown Non-blood Collection / Unknown 03/02/2024 03/02/2024 6:08 PM EST us Isha Hollis MD LAB MICROBIOLOGY - GENER AL ORDERABLES Final Result Performing Organization Address City/[facility]/ZIP Co de Phone Number [facility] [address] [place] [address], [place] [phone] documented in this encounter Visit Diagnoses Diagnosis Urinary tract infection, site not specified documented in this encounter Care Teams Experimental Aircraft Mechanic Relationship Specialty Start Date End Date Bernardino Pham NP [address] [facility] [place] PCP - General Family Medicine 02/19/24 documented as of this encounter
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
--- OUTSIDE RECORDS SUMMARY | 2024-06-03 07:26 | XMS_ITS | Encounter Summary ---
Author Organization [facility] Address [address] [place] [address] Care Team Providers Care Drop Wirer Name Role Phone Bernardino Pham NP Primary Care Provider + [phone] Reason for Visit * Reason Comments Scheduled Induction * Auth/Cert (Routine) Specialty Diagnoses / Procedures Referred By Contac t Referred To Contact Diagnoses Encounter for induction of labor Procedures [facility] IP/OBS CARE INITIAL MODERATE LEVEL PER DAY Julio Umaña MD [address] [address] Phone: tel: fax: [address] [address] Phone: tel: Referral ID Status Reason Start Date Expiration Date Visits Re quested Visits Authorized [id number] 1 1 Encounter Details Date Type Department Care Team (Late st Contact Info) Description 05/18/2024 5:09 PM EST - 05/21/2024 9:30 AM EST Hospital Encounter [facility] - [address] [address] Julio Umaña MD [address] [address] Moises Camacho MD [address] [place] [id number] Vaginal delivery (Primary Dx) Discharge Disposition: Home or Self Care Social History Tobacco Use Types Packs/Day Years [...] care for your loved ones. For example, early childhood teacher or elderly care for an older adult? [...] AM EST documented as of this encounter Last Filed Vital Signs Vital Sign Reading [...] Mass Index 40.69 05/18/2024 5:32 PM EST documented in this encounter Discharge Summaries * Isha Hollis MD - 05/21/2024 9:30 AM EST Obstetrical Discharge Form Primary OB Clinician: Dr. Hunt EDC: 05/26/2024, by Last Menstrual Period Gestational Age at Time of Delivery: Information for the patient's : Mily Nelson [[id number]] Gestational Age: 39w0d Antepartum complications: Problems (from 04/18/24 to present) No problems associated with this episode. Date and Time of Delivery: 05/19/2024 11:29 AM Delivered By: Isha Hollis MD ;Collaborating MD- Mily Nelson [[id number]] Delivery Providers Delivering clinician: Isha Hollis MD Provider Role Delivery Assist Iliana Coy RN Delivery Nurse Delivery Type: Vaginal, Spontaneous Baby: Mily Nelson is a , Male, weighing 3500 g (123.5 oz). Scores: Minute(s) 1: 6 5: 9 10: Anesthesia: Method: Nitrous Oxide Analgesics: Intrapartum complications: Labor and Delivery Complications: None Additional complications: Quantitative Blood Loss - Delivery (mL): 300 mL, , Episiotomy: no Laceration: 1st degree Perineal laceration: 1st Perineal laceration repaired? Yes 1 Placenta: Placenta delivery: Spontaneous Feeding method: Current feeding plan: Information for the patient's : Mily Nelson [[id number]] Feeding Type: Breast milk Complications: dx; complications ob (paragraph): no complications Physical Exam: Pending Labs: Rh Immune globulin given: not applicable Brief Delivery Details: Immunizations: Most Recent Immunizations Administered Date(s) Administered Pfizer SARS-CoV-2 COVID-19, mRNA, LNP-S, preservative free 04/14/2021 Discharge Date: Plan: F/u with Dr. Hunt in 5 weeks and call for any concerns [phone]. Discharge Medications: Your medication list STOP taking these medications hydrOXYzine pamoate 25 mg capsule Commonly known as: VISTARIL vitamin iron fum-folic acid 28-0.8 mg per tablet Follow-up: Follow-up appointment with Dr. Hunt in 5 week. documented in this encounter Discharge Instructions * Attachments The following attachments cannot be sent through Care Everywhere. * (Central African) * : Emergency Symptoms ([place]) * Preeclampsia ([place]) documented in this encounter Discharge Disposition Disposition Code Departure Means Destination Comment s Home or Self Care documented in this encounter Progress Notes * Ira Lowery RN - 05/21/2024 10:01 AM EST Patient discharged to home with and FOB. Patient verbalized understanding of discharge instructions and follow up appointments. No questions at this time. * Ira Lowery RN - 05/21/2024 10:01 AM EST See care plan. * Isha Hollis MD - 05/21/2024 8:22 AM EST * Isha Hollis MD - 05/20/2024 5:14 PM EST Progress note Subjective Patient reports feeling well. [...] push fluids routine care. Education as needed. * Christine Ware RN - 05/20/2024 1:45 PM EST EXP. MOM. BF LAST CHILD NOW 8 Y.O. FOR 2 YEARS. MOM HAS LARGE PENDULOUS BREASTS, MED NIPPLES INTACT. MINIMAL ASSIST WITH POSITIONING. BABY ON BREAST LATCHED WELL. DISCUSSED INSURANCE PUMPS AND ONE GIVEN. CONTINUE TO FEED ON CUE OR EVERY 2-3 HOURS WAKING TO FEED. ENC. TO CALL IF ANY QUESTIONS OR CONCERNS. * Isha Hollis MD - 05/19/2024 12:07 PM EST OB Vaginal Delivery Note 05/19/2024 Rosio Meehanroe 33 y.o. Gestational Age: 39w0d /Para: Labor Complications: None Blood Loss: 300 cc Delivery Blood Loss Intrapartum & : 05/18/24 2329 - 05/19/24 1208 Delivery Admission: 05/18/24 1709 - 05/19/24 1208 Intrapartum & Delivery Admission None Delivery Type: Vaginal, Spontaneous ROM to Delivery Time: 2h 29m Sex: Male [place] Weight: 3500 g (123.5 oz) 1 Minute 5 Minute 10 Minute Totals: 6 9 Delivering provider: Dr. Hunt. Delivery Details: Rosio Forbes, a 33 y.o. female delivered a viable Male with Apgars of 6 and 9 . Patient was fully dilated and pushing after 2 hours 25 minutes in active labor. The patient was put inthe dorsal lithotomy position. The patient pushed for 4 minutes. Delivery was via Vaginal, Spontaneous to a sterile field under anesthesia. Infant delivered in Vertex OA position. Cord noted across the back of the neck - attempt to reduce was unsuccessful and then after delivery of the shoulders I could see that the cord was wrapped under the left armpit. Anterior and posterior shoulders delivered without difficulty. Cord was wrapped across the back of the neck and then looped under the left armpit. . Unwrapped after delivery. The cord was clamped, cut twice and 3 vessels were noted. Cord blood was obtained in routine fashion with the following disposition: . Cord complications were cord was wrapped across the back of the neck and then under the left armpit which were unwrapped after delivery. Intact placenta delivered at 05/19/2024 11:34 AM. Third stage was 5 minutes. Fundal massage performed and fundus found to be firm. 3 cm of trailing membranes removed from the cervix manually. Perineum, vagina, cervix were inspected, and the following lacerations were noted: first degree left anterior vaginal - repaired in a single layer of 3-0 vicryl after local was given. Danielle Forbes [[id number]] Excellent hemostasis was noted. Needle count correct. Infant and patient in delivery room in good and stable condition. Delivery Complications: Resuscitation: Suctioning;Tactile stimulation Resuscitation Comment: delivered by without complications. There was a delay for delivery of the body after the head but no shoulder dystocia. Baby depressed at delivery, dried/stimulated/bulb suctioned. Initial weak cry at 50 seconds of life, baby was transferred to the warmer. On the warmer baby responded well to stimulation with no further resuscitation needed. Baby was deep suction for moderate amount of clear secretions. There was a normal stool after delivery, no void noted. Isha Hollis MD * Radha Blackburn CNM - 05/19/2024 5:24 AM EST S/O- pt able to get some sleep FHT- 130/min variability, no accels, no decels Ctx- 1/[address] and due for removal at 0800 A- Cat 2 tracing P- position changes for descent and oxygenation, will continue to monitor and re-assess as needed. Radha Blackburn CNM * Radha Blackburn CNM - 05/19/2024 12:08 AM EST Tracing round Pt is resting, comfortable through irregular contractions. CCB in place at 80/80, FOB supportive FHT- 130/mod/+accels. No decels Ctx- 1-2/10 min VSS- last BP 110/51, asymptomatic A- Cat 1 tracing, GHTN P- will continue with CCB per protocol, continuous monitoring, position changes, VSS per protocol. Will re-assess in 4-6hours. CCB due for removal at 0800. Radha Blackburn CNM * Moises Camacho MD - 05/18/2024 8:50 PM EST OB Progress Note Subjective Patient undergoing IOL for GHTN, Additional problem list, subclinical hypothyroid and GBS negative. Objective HELLP labs wnl. PCR 0.23 (there was a previous PCR 0.39 but this was repeat and wnl 0.19) Reported normal exam, Asymptomatic and BP's wnl to mildly elevated. Current Medications: lactated Ringer's, 125 mL/hr, Last Rate: Stopped (05/18/24 1900) sodium chloride, 10 mL, intravenous, BID Last Recorded Vitals: Patient Vitals for the past 24 hrs: BP Temp Temp src Pulse Resp SpO2 Height Weight 05/18/246 138/88 36.5 ??C (97.7 ??F) Temporal 97 [...] variability, positive accelerations and no decelerations noted. FWBR cat 1 Lab Results: Recent Results (from [...] for consultation and intervention. Moises Camacho MD * Radha Blackburn CNM - 05/18/2024 8:28 PM EST Jesu cervical balloon insertion Reviewed R/B/A options for cervical ripening. Pt opted for CCB. All questions answered Cat 1 tracing CCB inserted with ease, pt tolerated well. Balloon inflated to 60/60- will increase to 80/80 in 1hour to give pt some time to adjust. Offered meds for sleep/pain- declines at this time. Continuous monitoring, will continue to monitor and re-assess in 4-6hours and sooner if needed Pt agrees with plan. Radha Blackburn CNM documented in this encounter H&P Notes * Radha Blackburn CNM - 05/18/2024 8:12 PM EST Obstetrical Admission History and Physical Chief Complaint: Scheduled Induction Subjective History of Present Rosio Forbes is a 33 y.o. gravid, female. Patient's last menstrual period was 08/20/2023 (exact date). Patient has an Estimated Date of Delivery: 05/26/24 who is now at 38w6d gestation. The patient presents to Labor & Delivery for IOL for GHTN. She reports good FM, No LOF or vaginal bleeding. Some irregular contractions. She denies MEDINA, CP, SOB, RUQ pain, or visual changes. She is a pt of [facility]. She is not on any antihypertensives. She denies any concerns. She is taking PNV as her only medication. Complications: Patient Active Problem List Diagnosis Elevated blood pressure reading in office without diagnosis of hypertension Cystic fibrosis carrier Obesity affecting in third trimester Other specified hypothyroidism Encounter for induction of labor Obstetrical History OB History 2 Para 1 Term 1 AB Living 1 SAB IAB Ectopic Multiple Live Births Past Medical History: Diagnosis Date Hypothyroidism Obesity, Class III, BMI 40-49.9 (morbid obesity) (CMS/[facility]) Past Surgical History: Procedure Laterality Date WISDOM TOOTH EXTRACTION Social History Socioeconomic History Marital status: Single Spouse name: Not on file Number of children: Not on file Years of education: Not on file Highest education level: Not on file Occupational History Not on file Tobacco Use Smoking status: Never Smokeless tobacco: Never Substance and Sexual Activity Alcohol use: Not on file Drug use: Not on file Sexual activity: Yes Other Topics Concern Not on file Social History Narrative Not on file Family History Problem Relation Name Age of Onset Brain cancer Brother Stroke Brother Allergies Bacitracin Medications Prior to Admission Medication Sig Dispense Refill Last Dose/Taking vitamin iron fum-folic acid 28-0.8 mg per tablet Take 1 tablet by mouth 1 (one) time each day. 05/17/2024 hydrOXYzine pamoate (VISTARIL) 25 mg capsule Take 1 capsule (25 mg total) by mouth 3 (three) times a day if needed for itching for up to 10 days. (Patient not taking: Reported on 05/18/2024) Not Taking Review of Systems: Review of Systems Constitutional: Negative. Eyes: Negative for visual disturbance. Respiratory: Negative. Cardiovascular: Negative. Gastrointestinal: Negative. Genitourinary: Negative. Skin: Negative. Neurological: Negative for dizziness, weakness, light-headedness and headaches. Hematological: Negative. Psychiatric/Behavioral: Negative. ROCK DUST SPRAYER: Negative Objective Physical Examination BP: 138/88 (05/18 1925) Heart Rate: 97 (05/18 1925) Temp: 36.5 ??C (97.7 ??F) (05/18 1925) Temp Source: Temporal (05/18 1925) SpO2: 98 % (05/18 1925) Gen: Alert, cooperative. Well-appearing on today's exam Cardiovascular: regular rate and rhythm, no m/r/g Lung: clear to auscultation bilaterally, no wheezing, ronchi, normal respiratory effort Breast: Not examined Abdomen: Soft,non-tender, Gravid Extremities: no calf tenderness, discoloration or edema, atraumatic without deformity. Positive pedal pulses, Normal 2+ reflexes to bilateral patella. Skin: Skin color, texture, turgor normal. No rashes or lesions Psych: Mood and affect appropriate. Pelvic: External Genitalia: Normal architecture, without lesions. No inguinal lymphadenopathy. Vagina: Mucosa is pink with normal rugae. No abnormal discharge or lesions. Cervix: 1.5/50/-3 Uterus: Enlarged to approximately 38 GA Adnexa: Not examined Perianal area without lesions Pelvic type- Gynecoid KESSLER SCORE- 3 ViFHR baseline is 135, with Moderate (Between 6 and 25 BPM) variability, +accels and no decelerations. Category I tracing. The fetus is in a cephalic presentation. Membranes are Intact Lab Review: Lab Results Component Value Date WBC 12.7 (H) 05/18/2024 HGB 12.2 05/18/2024 HCT 36.3 05/18/2024 PLT 259 05/18/2024 Assessment: 33 y.o. IUP 38w6d Admitted for induction of labor for Gestational Hypertension, mild range pressures Category 1 tracing Obesity in Subclinical hypothyroid Plan: Admitted to Labor and Delivery for IOL, reviewed R/B of IOL, cervical ripening and all questions answered. Admission labs routine: cbc, rpr, type and screen pre-eclamptic labs (cbc, liver enzymes, albumin, protein/creat ratio Induction mgmt plan cervical balloon vital signs and heart rate monitoring per protocol hospitalist Dr. Stringer informed of admission Rosio Forbes qualifies for co-management with the hospitalist Dr. Stringer. Ongoing assessmentand possible transition between levels of care will continue throughout her in-patient stay. Radha Blackburn CNM documented in this encounter Plan of Treatment Not on file documented as of this encounter Procedures Procedure Name Priority Date/Time Associated Diagnosis Comments PROTEIN AND CREATININE WITH RATIO, URINE STAT 05/18/2024 6:28 PM EST TREPONEMA PALLIDUM ANTIBODY WITH REFLEX TO RPR AND PARTICLE AGGLUTINATION STAT 05/18/2024 6:06 PM EST CREATININE, SERUM STAT Add-on 05/18/2024 6:0 6 PM EST COMPLETE BLOOD COUNT STAT 05/18/2024 6:06 PM EST TYPE AND SCREEN STAT 05/18/2024 6:06 PM EST URIC ACID STAT Add-on 05/18/2024 6:06 PM EST TRIIODOTHYRONINE FREE STAT Add-on 05/18/2024 6:06 PM EST THYROID STIMULATING HORMONE STAT Add-on 05/18/2024 6:06 PM EST THYROXINE FREE STAT Add-on 05/18/2024 6:06 PM EST HEPATIC FUNCTION PANEL Routine 6:06 PM EST documented in this encounter Results * (ABNORMAL) Protein and creatinine with ratio, urine (05/18/2024 6:28 PM EST) Protein, Urine 40 mg/dL LAB CHEMISTRY METHOD 05/18/2024 7:13 PM EST [facility] Prot/Creat, Ur 0.23(H) <=0.20 mg/mg creat LAB CHEMISTRY METHOD 05/18/2024 7:13 PM EST [facility] Creatinine, Urine 175.0 mg/dL LAB CHEMISTRY METHOD 05/18/2024 7:13 PM EST [facility] Urine Urine specimen obtained by clean catch procedure / Unknown 05/18/2024 6:28 PM EST 05/18/2024 6:28 PM EST us Radha Blackburn [facility] URINE ORDERABLES Final Res ult [facility] [address] [place] [address], [place] [phone] * Uric acid (05/18/2024 6:06 PM EST) Uric Acid 5.2 3.1 - 7.8 mg/dL LAB CHEMISTRY METHOD 05/18/2024 7:46 PM EST [facility] Blood Venous blood specimen / Unknown Venipuncture / Unknown 05/18/2024 6:06 PM EST 05/18/2024 6:29 PM EST us Radha OLMOS LAB BLOOD ORDERABLES Final Res ult Performing Organization Address [facility]/ZIP Co de Phone Number [facility] [address] [place] [address], [place] [phone] * Creatinine, serum (05/18/2024 6:06 PM EST) Creatinine 0.60 0.50 - 1.10 mg/dL LAB CHEMISTRY METHOD 05/18/2024 7:46 PM EST [facility] eGFR 122 >=60 mL/min/1. 73m2 LAB CHEMISTRY METHOD 05/18/2024 7:46 PM EST [facility] Comment:Calculation based on the??Chronic Kidney Disease Epidemiology Collaboration (CKD-EPI) equation refit??without adjustment for race. Blood Venous blood specimen / Unknown Venipuncture / Unknown 05/18/2024 6:06 PM EST 05/18/2024 6:29 PM EST us Radha Blackburn [facility] LAB BLOOD ORDERABLES Final Res ult Performing Organization Address [facility]/ZIP Co de Phone Number [facility] [address] [place] [address], [place] [phone] * T3, Free (05/18/2024 6:06 PM EST) T3, Free 271 230 - 420 pcg/dL LAB CHEMISTRY METHOD 05/18/2024 8:24 PM EST [facility] Blood Venous blood specimen / Unknown Venipuncture / Unknown 05/18/2024 6:06 PM EST 05/18/2024 6:29 PM EST us Radha Blackburn CN LAB BLOOD ORDERABLES Final Res ult [facility] [address] [place] [address], [place] [phone] * T4, Free (05/18/2024 6:06 PM EST) Free T4 0.94 0.70 - 1.80 ng/dL LAB CHEMISTRY METHOD 05/18/2024 8:01 PM EST [facility] Blood Venous blood specimen / Unknown Venipuncture / Unknown 05/18/2024 6:06 PM EST 05/18/2024 6:29 PM EST us Radha Blackburn [facility] LAB BLOOD ORDERABLES Final Res ult Performing Organization Address [facility] Co de Phone Number [facility] [address] [place] [address], [place] [phone] * (ABNORMAL) Thyroid stimulating hormone (05/18/2024 6:06 PM EST) TSH 4.78(H) 0.40 - 4.00 mcIU/mL LAB CHEMISTRY METHOD 05/18/2024 8:01 PM EST [facility] Blood Venous blood specimen / Unknown Venipuncture / Unknown 05/18/2024 6:06 PM EST 05/18/2024 6:29 PM EST us Radha Blackburn [facility] LAB BLOOD ORDERABLES Final Res ult Performing Organization Address [facility]/ZIP Co de Phone Number [facility] [address] [place] [address], [place] [phone] * (ABNORMAL) Hepatic function panel (05/18/2024 6:06 PM EST) Total Protein 7.1 6.0 - 8.0 g/dL LAB CHEMISTRY METHOD 05/18/2024 7:18 PM EST [facility] Albumin 3.0(L) 3.2 - 5.0 g/dL LAB CHEMISTRY METHOD 05/18/2024 7:18 PM [facility] Total Bilirubin 0.3 0.0 - 1.4 mg/dL LAB CHEMISTRY METHOD 05/18/2024 7:18 PM [facility] Bilirubin, Direct <0.1 0.0 - 0.3 mg/dL LAB CHEMISTRY METHOD 05/18/2024 7:18 PM [facility] Bilirubin, Indirect LAB CHEMISTRY METHOD 05/18/2024 7:18 PM [facility] Comment:Unable to calculate Indirect Bilirubin. ALT (SGPT) 17 10 - 60 unit/L LAB CHEMISTRY METHOD 05/18/2024 7:18 PM [facility] AST (SGOT) 14 10 - 42 unit/L LAB CHEMISTRY METHOD 05/18/2024 7:18 PM [facility] Alkaline Phosphatase 131(H) 42 - 121 unit/L LAB CHEMISTRY METHOD 05/18/2024 7:18 PM [facility] Blood Venous blood specimen / Unknown Venipuncture / Unknown 05/18/2024 6:06 PM EST 05/18/2024 6:29 PM EST us Radha Blackburn CNJesse LAB BLOOD ORDERABLES Final Res ult [facility] [address] [place] [address], [place] [phone] * Treponema pallidum antibody with reflex to RPR and particle agglutination (05/18/2024 6:06 PM EST) T. Pallidum Antibodies Negative Negative LAB CHEMISTRY METHOD 05/18/2024 8:35 PM [facility] Blood Venous blood specimen / Unknown Venipuncture / Unknown 05/18/2024 6:06 PM EST 05/18/2024 6:29 PM EST us Radha Blackburn [facility] LAB BLOOD ORDERABLES Final Res ult [facility] [address] [place] [address], [place] [phone] * Type and screen (05/18/2024 6:06 PM EST) Pathologist [facility] AB 05/18/2024 7:15 PM EST [facility] Rh Type Positive 05/18/2024 7:15 PM EST [facility] Antibody Screen Negative 05/18/2024 7:15 PM EST [facility] Blood Venous blood specimen / Unknown Venipuncture / Unknown 05/18/2024 6:06 PM EST 05/18/2024 6:28 PM EST Radha Blackburn [facility] BLOOD BANK TEST ORDERABLES Final Result Performing Organization Address [facility]/ZIP Co de Phone Number [facility] [address] [place] [address], [place] [phone] * (ABNORMAL) Complete blood count (05/18/2024 6:06 PM EST) [facility] WBC 12.7(H) 4.8 - 10.8 K/mcL LAB HEMETOLOGY METHOD 05/18/2024 6:37 PM [facility] RBC 4.20 3.80 - 4.80 M/mcL LAB HEMETOLOGY METHOD 05/18/2024 6:37 PM [facility] Hemoglobin 12.2 11.5 - 16.0 g/dL LAB HEMETOLOGY METHOD 05/18/2024 6:37 PM [facility] Hematocrit 36.3 35.0 - 47.0 % LAB HEMETOLOGY METHOD 05/18/2024 6:37 PM [facility] MCV 86.0 79.0 - 98.0 FL LAB HEMETOLOGY METHOD 05/18/2024 6:37 PM EST [facility] MCH 28.9 27.0 - 32.0 pcg LAB HEMETOLOGY METHOD 05/18/2024 6:37 PM EST [facility] MCHC 33.6 32.0 - 37.0 g/dL LAB HEMETOLOGY METHOD 05/18/2024 6:37 PM EST [facility] RDW 14.0 11.0 - 15.0 % LAB HEMETOLOGY METHOD 05/18/2024 6:37 PM [facility] Platelets 259 130 - 400 K/mcL LAB HEMETOLOGY METHOD 05/18/2024 6:37 PM [facility] MPV 9.7 7.0 - 11.0 FL LAB HEMETOLOGY METHOD 05/18/2024 6:37 PM [facility] NRBC 0.0 <1.0 % LAB HEMETOLOGY METHOD 05/18/2024 6:37 PM [facility] NRBC Absolute 0.00 <0.10 K/mcL LAB HEMETOLOGY METHOD 05/18/2024 6:37 PM [facility] Blood Venous blood specimen / Unknown Venipuncture / Unknown 05/18/2024 6:06 PM EST 05/18/2024 6:28 PM EST us Radha Blackburn CNM LAB BLOOD ORDERABLES Final Res ult [facility] [address] [place] [address], documented in this encounter Visit Diagnoses Diagnosis Encounter for induction of labor- Primary Vaginal delivery documented in this encounter Admitting Diagnoses Diagnosis Encounter for induction of labor documented in this encounter Administered Medications Inactive Administered Medications - up to 3 most recent administrations Medication Order MAR Action Action Date Dose Rate Site acetaminophen (TYLENOL) tablet 650 mg 650 mg, oral, Every 4 hours PRN, mild pain, moderate pain, Starting on Fri05/19/24 at 1517, Given 05/19/2024 11:42 PM EST 650 mg Given 05/19/2024 7:24 PM EST 650 mg aluminum-magnesium hydroxide-simethicone (MAALOX) 200-200-20 mg/5 mL suspension 30 mL 30 mL, oral, 4 times daily PRN, heartburn, Starting on Fri05/19/24 at 1201 calcium carbonate (TUMS) chewable tablet 500 mg 500 mg, oral, Every 4 hours PRN, heartburn, Starting on Fri05/18/24 at 1747, Pre-Delivery, Ordered as calcium carbonate. 500 mg calcium carbonate = 200 mg elemental calcium. carboprost (HEMABATE) injection 250 mcg 250 mcg, intramuscular, Every 15 min PRN, hemorrhage, Starting on Fri05/19/24 at 0102, For 8 doses, , Maximum cumulative dose 2 mg. diphenhydrAMINE (BENADRYL) capsule 25 mg 25 mg, oral, Every 6 hours PRN, itching, Starting on Fri05/18/24 at 1747, Pre-Delivery diphenhydrAMINE (BENADRYL) capsule 25 mg 25 mg, oral, Every 6 hours PRN, itching, Itching, Starting on Fri05/19/24 at 1517, glycerin-witch Thomas pads 1 each 1 each, Topical, As needed, irritation, Starting on Fri05/19/24 at 1517, , Apply to perineum hydrOXYzine pamoate (VISTARIL) capsule 50 mg 50 mg, oral, Once, On Fri05/19/24 at 0130, For 1 dose, Intraprocedure Given 05/19/2024 1:30 AM EST 50 mg ibuprofen (ADVIL,MOTRIN) tablet 800 mg 800 mg, oral, Every 8 hours PRN, mild pain, moderate pain, Starting on Fri05/19/24 at 1517, For 3 days, , Administer with food or milk to decrease GI upset. Give in addition to acetaminophen if ordered. Given 05/21/2024 8:35 AM EST 800 mg Given 05/20/2024 8:23 PM EST 800 mg Given 05/20/2024 10:01 AM EST 800 mg lactated Ringer's bolus 1,000 mL 1,000 mL, intravenous, Once as needed, For indeterminate or abnormal heart rate patterns, Starting on Fri05/18/24 at 1747, For 1 dose, Pre-Delivery lactated Ringer's infusion 125 mL/hr, intravenous, Continuous, Starting on Fri05/18/24 at 1815, Pre-Delivery Rate/Dose Verify 05/19/2024 1:00 PM EST 125 mL/hr 125 mL/hr Rate/Dose Verify 05/19/2024 10:00 AM EST 125 mL/hr 125 mL /hr New Bag 05/19/2024 8:33 AM EST 125 mL/hr 125 mL/hr lidocaine (XYLOCAINE) 1 % injection 10 mL 10 mL, infiltration, Once, On Fri05/19/24 at 1230, For 1 dose Given 05/19/2024 12:08 PM EST 10 mL methylergonovine (METHERGINE) injection 0.2 mg 0.2 mg, intramuscular, Every 2 hours PRN, hemorrhage, Starting on Fri05/19/24 at 0102, For 5 doses, , No more than 5 doses. HAZARDOUS Drug Precautions - Low Risk (Category A/NIOSH Group 3) Reproductive Risk Only: - Double pair of ASTM standard [id number] certified chemotherapy gloves - Eye protection (goggles or face shield) required only with a potential for facial contact (i.e. concern for spitting or vomiting of the dose during or after administration) - Staff at reproductive risk (actively trying to conceive, or may be become , and ): Chemotherapy gown miSOPROStoL (CYTOTEC) tablet 800 mcg 800 mcg, rectal, Once, On Fri05/19/24 at 1230, For 1 dose, HAZARDOUS Drug Precautions - Low Risk (Category A/NIOSH Group 3) Reproductive Risk Only: - Single pair of ASTM standard [id number] certified chemotherapy gloves - Eye protection (goggles or face shield) required only with a potential for facial contact (i.e. concern for spitting or vomiting of the dose during or after administration) - Staff at reproductive risk (actively trying to conceive, or may be become , and ): chemo certified gown and an N95 respirator required when crushing meds (crushing of tabs allowed only in closed pouches) or opening of capsules only for allowable dosage forms Given 05/19/2024 12:10 PM EST 800 mcg ondansetron (PF) (ZOFRAN) injection 4 mg 4 mg, intravenous, Every 8 hours PRN, vomiting, nausea, Starting on Fri05/18/24 at 1747, Pre-Delivery, -ONLY give IV if patient is unable to take orally. -If inadequate response within 30 minutes, proceed to next-line agent or contact provider if no further options ordered. ondansetron ODT (ZOFRAN-ODT) disintegrating tablet 4 mg 4 mg, oral, Every 8 hours PRN, vomiting, nausea, Starting on Fri05/18/24 at 1747, Pre-Delivery, -Give IV if patient is unable to take orally. -If inadequate response within 30 minutes, proceed to next-line agent or contact provider if no further options ordered. For ODT tablets: -Do not remove from blister pack until just before administering. -Patient should allow tablet to dissolve on tongue. oxyCODONE (ROXICODONE) immediate release tablet 5 mg 5 mg, oral, Every 6 hours PRN, severe pain, or when therapies for moderate pain were not effective, Starting on Fri05/19/24 at 1517, oxytocin (PITOCIN) infusion 30 units/500 mL (premix) 42-333 devin-units/min (42-333 mL/hr), intravenous, Continuous PRN, Post Delivery, Starting on Fri05/19/24 at 0102, , Start at 333 devin-units/min for 1 hour post delivery. Then run at 42 devin-units/min for an additional 4 hours. HAZARDOUS Drug Precautions - Low Risk (Category A/NIOSH Group 3) Reproductive Risk Only: - Double pair of ASTM standard [id number] certified chemotherapy gloves - Eye protection (goggles or face shield) required only with a potential for facial contact (i.e. concern for spitting or vomiting of the dose during or after administration) - Staff at reproductive risk (actively trying to conceive, or may be become , and ): Chemotherapy gown New Bag 05/19/2024 11:29 AM EST 333 devin-units/min 333 mL/hr oxytocin (PITOCIN) infusion 30 units/500 mL (premix) 2-20 devin-units/min (2-20 mL/hr), intravenous, Continuous, Starting on Fri05/19/24 at 0845, Pre-Delivery, GOAL EFFECT: -Adequate progress of labor is established (AND / OR) -Contractions every 2 to 3 mins START RATE: 2 devin-units/min TITRATION DOSE: 2 devin-units/min TITRATION FREQUENCY: Every 30 min, USUAL DOSE RANGE: 0.5 - 20 devin-units/min MAX RATE: 20 devin-units/min at discretion of physician -Bedside evaluation REQUIRED for GREATER rate If decreasing or discontinuing oxytocin, notify provider. If oxytocin-induced tachysystole is encountered and heart rate is Category 1: -Observe for 15 minutes and apply intrauterine resuscitative measures. -If tachysystole is not resolved in 15 minutes, decrease oxytocin by half. -If uterine activity has not returned to normal after an additional 15 minutes, discontinue oxytocin until uterine activity is LESS than 5 contractions per 10 minutes averaged over 30 minutes. -If oxytocin has been discontinued for LESS than 30 minutes and the heart rate is reassuring, resume oxytocin at one half the rate which caused the tachysystole and increase the rate as per original order. -If oxytocin has been discontinued for MORE than 30 minutes and the heart rate is reassuring, resume oxytocin per the initial dose ordered. If oxytocin-induced tachysystole is present with a Category 2 or 3 heart rate: -Decrease oxytocin by half of current rate and apply intrauterine resuscitative measures. -If no resolution of tachysystole after 15 minutes or heart rate remains non-reassuring, discontinue oxytocin infusion. -If oxytocin has been discontinued for LESS than 30 minutes and tachysystole has resolved and heart rate is reassuring, the oxytocin infusion may be restarted at one half the rate at which it was discontinued. The infusion may be increased by the rate of the original order. -If oxytocin has been discontinued for MORE than 30 minutes, resume infusion as per original order. -If no response, consider 0.25 mg terbutaline subcutaneously, per provider order. ONCE ADEQUATE LABOR ESTABLISHED: -Maintain rate necessary for continued labor progress *Individual cases may require deviation from parameters (with prescriber approval)* HAZARDOUS Drug Precautions - Low Risk (Category A/NIOSH Group 3) Reproductive Risk Only: - Double pair of ASTM standard [id number] certified chemotherapy gloves - Eye protection (goggles or face shield) required only with a potential for facial contact (i.e. concern for spitting or vomiting of the dose during or after administration) - Staff at reproductive risk (actively trying to conceive, or may be become , and ): Chemotherapy gown Rate/Dose Change 05/19/2024 9:30 AM EST 4 devin-units/min 4 mL/hr New Bag 05/19/2024 8:54 AM EST 2 devin-units/min 2 mL/h r polyethylene glycol (MIRALAX) packet 17 g 17 g, oral, Daily, First dose on Fri05/19/24 at 1230, Bowel Regimen - for prevention of constipation vitamin iron fum-folic acid 28-0.8 mg per tablet 1 tablet 1 tablet, oral, Daily with breakfast, First dose on Fri05/20/24 at 0800, For 3 days, Given 05/21/2024 8:35 AM EST 1 tablet Given 05/20/2024 10:01 AM EST 1 tablet senna (SENOKOT) tablet 17.2 mg 17.2 mg (2 tablet), oral, Nightly, First dose on Fri05/19/24 at 2100, , Bowel Regimen - for prevention of constipation Given 05/19/2024 9:08 PM EST 17.2 mg sodium chloride 0.9 % flush 10 mL 10 mL, intravenous, 2 times daily, First dose on Fri05/18/24 at 2100, Pre-Delivery Given 05/20/2024 10:04 AM EST 1 0 mL Given 05/19/2024 9:09 PM EST 10 mL documented in this encounter Discontinued Medications Medication Sig Discontinue Reason Start Date End Da te hydrOXYzine pamoate (VISTARIL) 25 mg capsule Take 1 capsule (25 mg total) by mouth 3 (three) times a day if needed for itching for up to 10 days. Stop Taking at Discharge 05/15/2024 05/21/2024 vitamin iron fum-folic acid 28-0.8 mg per tablet Take 1 tablet by mouth 1 (one) time each day. Stop Taking at Discharge 05/15/2024 05/21/2024 documented as of this encounter Active and Recently Administered Medications Times are shown in EST. Scheduled Medication Order 05/19/2024 05/20/2024 05/21/2024 hydrOXYzine pamoate (VISTARIL) capsule 50 mg (COMPLETED) 50 mg, oral, Once, On Fri05/19/24 at 0130, For 1 dose, Intraprocedure 0130 (Given - Provider: Annette Talamantes RN) lidocaine (XYLOCAINE) 1 % injection 10 mL (COMPLETED) 10 mL, infiltration, Once, On Fri05/19/24 at 1230, For 1 dose 1208 (Given - Provider: Iliana Coy RN) miSOPROStoL (CYTOTEC) tablet 800 mcg (COMPLETED) 800 mcg, rectal, Once, On Fri05/19/24 at 1230, For 1 dose, HAZARDOUS Drug Precautions - Low Risk (Category A/NIOSH Group 3) Reproductive Risk Only: - Single pair of ASTM standard [id number] certified chemotherapy gloves - Eye protection (goggles or face shield) required only with a potential for facial contact (i.e. concern for spitting or vomiting of the dose during or after administration) - Staff at reproductive risk (actively trying to conceive, or may be become , and ): chemo certified gown and an N95 respirator required when crushing meds (crushing of tabs allowed only in closed pouches) or opening of capsules only for allowable dosage forms 1210 (Given - Provider: Iliana Coy RN) polyethylene glycol (MIRALAX) packet 17 g 17 g, oral, Daily, First dose on Fri05/19/24 at 1230, Bowel Regimen - for prevention of constipation 1230 (Canceled Entry - Provider: Automatic Discharge Provider - Comment: Automatically canceled at discontinue of medication order) 1002 (Not Given - Provider: Tala Contreras RN - Reason: Patient/Resident/Ag ent refused - education provided ) 0835 (Not Given - Provider: Ira Lowery RN - Reason: Patient/Resident/Ag ent refused - education provided ) vitamin iron fum-folic acid 28-0.8 mg per tablet 1 tablet 1 tablet, oral, Daily with breakfast, First dose on Fri05/20/24 at 0800, For 3 days, 1001 (Given - Provider: Tala Contreras RN) 0835 (Given - Provider: Ira Lowery RN) senna (SENOKOT) tablet 17.2 mg 17.2 mg (2 tablet), oral, Nightly, First dose on Fri05/19/24 at 2100, , Bowel Regimen - for prevention of constipation 2107 (Given - Provider: Lucie Abdi RN) 2099 (Not Given - Provider: Kimberly Blackburn RN - Reason: Patient/Resident/Ag ent refused - education provided ) sodium chloride 0.9 % flush 10 mL (CANCELED)(Linked Group 1) 10 mL, intravenous, 2 times daily, First dose on Fri05/18/24 at 2100, Pre-Delivery 0900 (Due)2108 (Given - Provider: Lucie Abdi RN) 100 (Given - Provider: Tala Contreras RN) tranexamic acid (CYKLOKAPRON) 1,000 mg in sodium chloride 0.9 % 100 mL IVPB 1,000 mg (1 g), intravenous, at 600 mL/hr, Administer over 10 Minutes, Once, On Fri05/19/24 at 0130, For 1 dose, , - Administer via infusion pump - Do NOT administer in the same line as blood products or penicillin Do not exceed maximum rate of 100 mg per minute. 0130 (Canceled Entry - Provider: Automatic Discharge Provider - Comment: Automatically canceled at discontinue of medication order) Continuous Medication Order 05/19/2024 05/20/2024 05/21/2024 lactated Ringer's infusion 125 mL/hr, intravenous, Continuous, Starting on Fri05/18/24 at 1815, Pre-Delivery 0238 (Restarted - Provider: Annette Talamantes RN)0833 (New Bag - Provider: Iliana Coy RN)1000 (Rate/Dose Verify - Provider: Iliana Coy RN)1300 (Rate/Dose Verify - Provider: Iliana Coy RN) 1241 (Due: Stopped) oxytocin (PITOCIN) infusion 30 units/500 mL (premix) (CANCELED) 2-20 devin-units/min (2-20 mL/hr), intravenous, Continuous, Starting on Fri05/19/24 at 0845, Pre-Delivery, GOAL EFFECT: -Adequate progress of labor is established (AND / OR) -Contractions every 2 to 3 mins START RATE: 2 devin-units/min TITRATION DOSE: 2 devin-units/min TITRATION FREQUENCY: Every 30 min, USUAL DOSE RANGE: 0.5 - 20 devin-units/min MAX RATE: 20 devin-units/min at discretion of physician -Bedside evaluation REQUIRED for GREATER rate If decreasing or discontinuing oxytocin, notify provider. If oxytocin-induced tachysystole is encountered and heart rate is Category 1: -Observe for 15 minutes and apply intrauterine resuscitative measures. -If tachysystole is not resolved in 15 minutes, decrease oxytocin by half. -If uterine activity has not returned to normal after an additional 15 minutes, discontinue oxytocin until uterine activity is LESS than 5 contractions per 10 minutes averaged over 30 minutes. -If oxytocin has been discontinued for LESS than 30 minutes and the heart rate is reassuring, resume oxytocin at one half the rate which caused the tachysystole and increase the rate as per original order. -If oxytocin has been discontinued for MORE than 30 minutes and the heart rate is reassuring, resume oxytocin per the initial dose ordered. If oxytocin-induced tachysystole is present with a Category 2 or 3 heart rate: -Decrease oxytocin by half of current rate and apply intrauterine resuscitative measures. -If no resolution of tachysystole after 15 minutes or heart rate remains non-reassuring, discontinue oxytocin infusion. -If oxytocin has been discontinued for LESS than 30 minutes and tachysystole has resolved and heart rate is reassuring, the oxytocin infusion may be restarted at one half the rate at which it was discontinued. The infusion may be increased by the rate of the original order. -If oxytocin has been discontinued for MORE than 30 minutes, resume infusion as per original order. -If no response, consider 0.25 mg terbutaline subcutaneously, per provider order. ONCE ADEQUATE LABOR ESTABLISHED: -Maintain rate necessary for continued labor progress *Individual cases may require deviation from parameters (with prescriber approval)* HAZARDOUS Drug Precautions - Low Risk (Category A/NIOSH Group 3) Reproductive Risk Only: - Double pair of ASTM standard [id number] certified chemotherapy gloves - Eye protection (goggles or face shield) required only with a potential for facial contact (i.e. concern for spitting or vomiting of the dose during or after administration) - Staff at reproductive risk (actively trying to conceive, or may be become , and ): Chemotherapy gown [id number] (New Bag - Provider: Iliana Coy RN)0930 (Rate/Dose Change - Provider: Iliana Coy RN)1516 (Stopped - Provider: Iliana Coy RN) PRN Medication Order 05/19/2024 05/20/2024 05/21/2024 acetaminophen (TYLENOL) tablet 650 mg 650 mg, oral, Every 4 hours PRN, mild pain, moderate pain, Starting on Fri05/19/24 at 1517, 1924 (Given - Provider: Lucie Abdi RN)2342 (Given - Provider: Ira Larry RN) aluminum-magnesium hydroxide-simethicone (MAALOX) 200-200-20 mg/5 mL suspension 30 mL 30 mL, oral, 4 times daily PRN, heartburn, Starting on Fri05/19/24 at 1201 calcium carbonate (TUMS) chewable tablet 500 mg 500 mg, oral, Every 4 hours PRN, heartburn, Starting on Fri05/18/24 at 1747, Pre-Delivery, Ordered as calcium carbonate. 500 mg calcium carbonate = 200 mg elemental calcium. carboprost (HEMABATE) injection 250 mcg 250 mcg, intramuscular, Every 15 min PRN, hemorrhage, Starting on Fri05/19/24 at 0102, For 8 doses, , Maximum cumulative dose 2 mg. diphenhydrAMINE (BENADRYL) capsule 25 mg 25 mg, oral, Every 6 hours PRN, itching, Starting on Fri05/18/24 at 1747, Pre-Delivery diphenhydrAMINE (BENADRYL) capsule 25 mg 25 mg, oral, Every 6 hours PRN, itching, Itching, Starting on Fri05/19/24 at 1517, glycerin-witch Thomas pads 1 each 1 each, Topical, As needed, irritation, Starting on Fri05/19/24 at 1517, , Apply to perineum ibuprofen (ADVIL,MOTRIN) tablet 800 mg 800 mg, oral, Every 8 hours PRN, mild pain, moderate pain, Starting on Fri05/19/24 at 1517, For 3 days, , Administer with food or milk to decrease GI upset. Give in addition to acetaminophen if ordered. 1524 (Given - Provider: Iliana Coy RN) 1001 (Given - Provider: Tala Contreras RN)2022 (Given - Provider: Kimberly Blackburn RN) 0835 (Given - Provider: Ira Lowery RN) lactated Ringer's bolus 1,000 mL 1,000 mL, intravenous, Once as needed, For indeterminate or abnormal heart rate patterns, Starting on Fri05/18/24 at 1747, For 1 dose, Pre-Delivery methylergonovine (METHERGINE) injection 0.2 mg 0.2 mg, intramuscular, Every 2 hours PRN, hemorrhage, Starting on Fri05/19/24 at 0102, For 5 doses, , No more than 5 doses. HAZARDOUS Drug Precautions - Low Risk (Category A/NIOSH Group 3) Reproductive Risk Only: - Double pair of ASTM standard D6978 certified chemotherapy gloves - Eye protection (goggles or face shield) required only with a potential for facial contact (i.e. concern for spitting or vomiting of the dose during or after administration) - Staff at reproductive risk (actively trying to conceive, or may be become , and ): Chemotherapy gown ondansetron (PF) (ZOFRAN) injection 4 mg(Linked Group 2) 4 mg, intravenous, Every 8 hours PRN, vomiting, nausea, Starting on Fri05/18/24 at 1747, Pre-Delivery, -ONLY give IV if patient is unable to take orally. -If inadequate response within 30 minutes, proceed to next-line agent or contact provider if no further options ordered. ondansetron ODT (ZOFRAN-ODT) disintegrating tablet 4 mg(Linked Group 2) 4 mg, oral, Every 8 hours PRN, vomiting, nausea, Starting on Fri05/18/24 at 1747, Pre-Delivery, -Give IV if patient is unable to take orally. -If inadequate response within 30 minutes, proceed to next-line agent or contact provider if no further options ordered. For ODT tablets: -Do not remove from blister pack until just before administering. -Patient should allow tablet to dissolve on tongue. oxyCODONE (ROXICODONE) immediate release tablet 5 mg 5 mg, oral, Every 6 hours PRN, severe pain, or when therapies for moderate pain were not effective, Starting on Fri05/19/24 at 1517, oxytocin (PITOCIN) infusion 30 units/500 mL (premix) 42-333 devin-units/min (42-333 mL/hr), intravenous, Continuous PRN, Post Delivery, Starting on Fri05/19/24 at 0102, , Start at 333 devin-units/min for 1 hour post delivery. Then run at 42 devin-units/min for an additional 4 hours. HAZARDOUS Drug Precautions - Low Risk (Category A/NIOSH Group 3) Reproductive Risk Only: - Double pair of ASTM standard D6978 certified chemotherapy gloves - Eye protection (goggles or face shield) required only with a potential for facial contact (i.e. concern for spitting or vomiting of the dose during or after administration) - Staff at reproductive risk (actively trying to conceive, or may be become , and ): Chemotherapy gown [id number] (New Bag - Provider: Iliana Coy RN) 1241 (Due: Stopped) Linked Groups Order Group 1: Insert peripheral IV (CANCELED) STAT, Once, On Fri05/18/24 at 1748, For 1 occurrence, Pre-Delivery And Maintain IV access (CANCELED) Until discontinued, Starting on Fri05/18/24 at 1748, Until Specified, Pre- Delivery And Saline lock IV (CANCELED) Routine, Once, On Fri05/18/24 at 1748, For 1 occurrence, Pre-Delivery And sodium chloride 0.9 % flush 10 mL (CANCELED)Jump to med 10 mL, intravenous, 2 times daily, First dose on Fri05/18/24 at 2100, Pre- Delivery And sodium chloride 0.9 % flush 10 mL (CANCELED) 10 mL, intravenous, As needed, line care, Starting on Fri05/18/24 at 1747, Pre-Delivery Group 2: ondansetron ODT (ZOFRAN-ODT) disintegrating tablet 4 mgJump to med 4 mg, oral, Every 8 hours PRN, vomiting, nausea, Starting on Fri05/18/24 at 1747, Pre-Delivery, -Give IV if patient is unable to take orally. -If inadequate response within 30 minutes, proceed to next-line agent or contact provider if no further options ordered. For ODT tablets: -Do not remove from blister pack until just before administering. -Patient should allow tablet to dissolve on tongue. Or ondansetron (PF) (ZOFRAN) injection 4 mgJump to med 4 mg, intravenous, Every 8 hours PRN, vomiting, nausea, Starting on Fri05/18/24 at 1747, Pre-Delivery, -ONLY give IV if patient is unable to take orally. -If inadequate response within 30 minutes, proceed to next-line agent or contact provider if no further options ordered. documented in this encounter Orders Medications Ordered That Otoniel ht Not Have Been Administered Count Last Ordered Date First Ordered Date aluminum-magnesium hydroxide -simethicone (MAALOX) 200-200-20 mg/5 mL suspension 30 mL 1 05/19/2024 carboprost (HEMABATE) injection 250 mcg 1 0 05/19/2024 diphenhydrAMINE (BENADRYL) capsule 25 mg 2 05/19/2024 05/18/2024 glycerin-witch Thomas pads 1 each 1 05/19/19 25 methylergonovine (METHERGINE ) injection 0.2 mg 1 05/19/2024 miSOPROStoL (CYTOTEC) tablet 800 mcg 1 05/01 oxyCODONE (ROXICODONE) immed iate release tablet 5 mg 1 05/19/2024 polyethylene glycol (MIRALAX) packet 17 g 1 05/19/2024 tranexamic acid (CYKLOKAPRON ) 1,000 mg in sodium chloride 0.9 % 100 mL IVPB 05/19/2024 acetaminophen (TYLENOL) suppository 650 mg 05/18/2024 acetaminophen (TYLENOL) tablet 650 mg calcium carbonate (TUMS) makenzie wable tablet 500 mg 1 05/18/2024 lactated Ringer's bolus 1,000 mL 05/18/19 25 lidocaine (XYLOCAINE) 1 % injection 5 mL 1 05/18/2024 ondansetron (PF) (ZOFRAN) injection 4 mg 05/18/2024 ondansetron ODT (ZOFRAN-ODT) disintegrating tablet 4 mg 1 05/18/2024 sodium chloride 0.9 % flush 10 mL 1 025 Diet Count Last Ordered Date First Orde red Date ADULT DISCHARGE DIET 1 05/21/2024 Nursing Count Last Ordered Date First Orde red Date ACTIVITY 1 05/21/2024 DISCHARGE INSTRUCTIONS 9 05/21/2024 DISCHARGE INSTRUCTIONS PERSONAL CARE 1 05/02 FOLLOW UP WITH PROVIDER 1 05/21/2024 NOTIFY PROVIDER - INDICATE REASON 1 025 Admission Count Last Ordered Date First Orde red Date ADMIT TO L&D INPATIENT 1 05/18/2024 Discharge Count Last Ordered Date First Orde red Date DISCHARGE PATIENT 1 05/21/2024 CORE MEASURES Count Last Ordered Date First Ord ered Date REASON FOR NO VTE PROPHYLAXI S - HOSPITAL ADMISSION - MECHANICAL 1 05/19/2024 documented in this encounter Care Teams Drop Wirer Relationship Specialty Start Date End Date Bernardino Pham NP [address] [facility] [place], [place] PCP - General Family Medicine 02/19/24 documented as of this encounter
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
--- OUTSIDE RECORDS SUMMARY | 2024-06-03 07:26 | XMS_ITS | Encounter Summary ---
Author Organization [facility] Address [address] [place] [address] Care Team Providers Care City Attorney Name Role Phone Bernardino Pham NP Primary Care Provider + [phone] Encounter Details Date Type Department Care Team (Latest Contact Info) Description 05/07/2024 Lab Requisition [facility] [address] [place] [address] Juloi Umaña MD [address] [phone] Encounter for screening for infections with a predominantly sexual mode of transmission; Urinary tract infection, site not specified; Encounter for screening for Streptococcus B Social History Tobacco Use Types Packs/Day Years [...] Diagnosis Comments URINALYSIS WITH REFLEX MICROSCOPIC Routine 05/07/2024 12:00 [...] specified Encounter for screening for Streptococcus B documented in this encounter Results * (ABNORMAL) Urinalysis with reflex microscopic (05/07/2024 12:00 AM EST) [facility] Specific [place] Urine 1.029 1.003 - 1.030 LAB URINALYSIS - AUTOMATED METHOD 05/07/2024 1:21 PM [facility] pH, Urine 6.5 5.0 - 8.0 pH LAB URINALYSIS - AUTOMATED METHOD 05/07/2024 1:21 PM [facility] Leukocytes, Urine Large(A) Negative LAB URINALYSIS - AUTOMATED METHOD 05/07/2024 1:21 PM [facility] Nitrite, Urine Negative Negative LAB URINALYSIS - AUTOMATED METHOD 05/07/2024 1:21 PM [facility] Protein, Urine 30(A) <=Trace mg/dL LAB URINALYSIS - AUTOMATED METHOD 05/07/2024 1:21 PM [facility] Glucose, Urine Negative Negative mg/dL LAB URINALYSIS - AUTOMATED METHOD 05/07/2024 1:21 PM [facility] Ketones, Urine Trace(A) Negative mg/dL LAB URINALYSIS - AUTOMATED METHOD 05/07/2024 1:21 PM [facility] Urobilinogen, Urine 1.0 0.2 - 1.0 mg/dL LAB URINALYSIS - AUTOMATED METHOD 05/07/2024 1:21 PM [facility] Bilirubin, Urine Negative Negative LAB URINALYSIS - AUTOMATED METHOD 05/07/2024 1:21 PM [facility] Blood, Urine Negative Negative LAB URINALYSIS - AUTOMATED METHOD 05/07/2024 1:21 PM [facility] RBC, Urine 2 0 - 4 /HPF LAB URINALYSIS - AUTOMATED METHOD 05/07/2024 1:21 PM [facility] WBC, Urine 256.3(H) 0 - 4 /HPF LAB URINALYSIS - AUTOMATED METHOD 05/07/2024 1:21 PM [facility] Squamous Epithelial, Urine >100(H) 0 - 60 /LPF LAB URINALYSIS - AUTOMATED METHOD 05/07/2024 1:21 PM [facility] Bacteria, Urine Many(A) Negative /HPF LAB URINALYSIS - AUTOMATED METHOD 05/07/2024 1:21 PM [facility] Hyaline Casts, Urine 22.6(H) 0 - 3 /LPF LAB URINALYSIS - AUTOMATED METHOD 05/07/2024 1:21 PM [facility] Urine Urine specimen obtained by clean catch procedure / Unknown 05/07/2024 05/07/2024 12:49 PM EST us Julio Umaña MD LAB URINE ORDERABLES Final Res ult [facility] [address] [place] [address], * Strep B molecular study (05/07/2024 12:00 AM EST) Grp B Strep PCR Not Detected Not Detected LAB MICROBIOLOGY METHOD 05/08/2024 9:44 AM EST [facility] Swab Vaginal swab / Unknown 05/07/2024 05/07/2024 12:49 PM EST us Julio Umaña MD LAB BLOOD ORDERABLES Final Res ult [facility] [address] [place] [address], [place] [phone] * Chlamydia trachomatis and Neisseria gonorrhoeae molecular study (05/07/2024 12:00 AM EST) Neisseria gonorrhoeae PCR Negative Negative LAB MOLECULAR DIAGNOSTICS METHOD 05/07/2024 4:47 PM EST [facility] Chlamydia trachomatis PCR Negative Negative LAB MOLECULAR DIAGNOSTICS METHOD 05/07/2024 4:47 PM EST [facility] Swab Cervix uteri structure / Unknown 05/07/2024 05/07/2024 12:49 PM EST us Julio Umaña MD LAB MICROBIOLOGY - GENERAL ORD ERABLES Final Result Performing Organization Address [facility] Co de Phone Number [facility] [address] [place] [address], [place] [phone] * Culture urine (05/07/2024 12:00 AM EST) Culture, Urine >100,000 CFU/mL Mixed urogenital jose, no uropathogens present. Suggest repeat specimen if clinically indicated. 05/08/2024 10:44 AM EST [facility] Urine Urine specimen obtained by clean catch procedure / Unknown 05/07/2024 05/07/2024 12:49 PM EST us Julio Umaña MD LAB MICROBIOLOGY - GENERAL ORD ERABLES Final Result Performing Organization Address City/[facility]/ZIP Co de Phone Number [facility] [address] [place] [address], documented in this encounter Visit Diagnoses Diagnosis Encounter for screening for infections with a predominantly sexual mode of transmission Urinary tract infection, site not specified Encounter for screening for Streptococcus B documented in this encounter Care Teams City Attorney Relationship Specialty Start Date End Date Bernardino Pham NP [address] [place], [place] PCP - General Family Medicine 02/19/24 documented as of this encounter
--- OUTSIDE RECORDS SUMMARY | 2024-06-03 07:26 | XMS_ITS | Encounter Summary ---
Author Organization [facility] Address [address] [place] [address] Care Team Providers Care Alumni Relations Manager Name Role Phone Bernardino Pham NP Primary Care Provider + [phone] Reason for Visit * Reason Comments Blood Pressure Check Pt was seen in doct ors office yesterday for bp check and it was elavated, here for bp check, denies any h/a, no vision disturbance, no epigastric pain * Auth/Cert (Routine) Specialty Diagnoses / Procedures Referred By Ced martines Referred To Contact Diagnoses Elevated blood pressure reading in office without diagnosis of hypertension Procedures [facility] IP/OBS CARE ADMIT/DISCHARGE SAME DATE MODERATE LEVEL Julio Figueroa MD [address] [place] [address] Phone: tel: fax: [address] [address] Phone: tel: Referral ID Status Reason Start Date Expiration Date Visits Re quested Visits Authorized [id number] 1 1 Encounter Details Date Type Department Care Team (Latest Contact Info) Description 05/08/2024 10:02 AM EST - 05/08/2024 11:10 AM EST Hospital Encounter [address] [address] Julio Figueroa MD [address] [place] [address] Discharge Disposition: Home or Self Care Social [...] Sign Reading Time Taken Comments Blood Pressure 137/82 05/08/2024 10:21 AM EST Pulse 108 05/08/2024 10:21 AM EST Temperature 36.8 ??C (98.3 ??F) 05/08/2024 10:[address] Respiratory Rate 18 05/08/2024 10:19 AM EST Oxygen Saturation 100% 05/08/2024 10:19 AM EST Inhaled Oxygen Concentration - - Weight 136 kg (300 lb) 05/08/2024 10:19 AM EST Height 182.9 cm (6') 05/08/2024 10:19 AM EST Body Mass Index 40.69 05/08/2024 10:19 AM EST documented in this encounter Discharge Summaries * Amy Durant CNM - 05/08/2024 10:33 AM EST Obstetrical Triage Note Reason for Triage Observation: Blood Pressure Check (Pt was seen in doctors office yesterday for bpcheck and it was elavated, here for bp check, denies any h/a, no vision disturbance, no epigastric pain ) Denies vb/lof/ctx/dfm. Pt of CH group Assessment Presents for BP check, BP today 137/82 and no PIH sx Triage Testing revealed Normotensive and reactive NST Patient denies complaints denies MEDINA/visual changes/ epigastric pain Plan Discharge home., Continue to monitor., and Reviewed warning signs to call including headaches/visual changes/cp/sob, CTX/lof/dfm Keep upcoming appt Subjective History of Present Rosio Forbes is a 33 y.o. gravid, female. Patient's last menstrual period was 08/20/2023 (exact date). with an Estimated Date of Delivery of 05/26/2024, by Last Menstrual Period, who is now 37w3d gestation. Here with S.O today Triage Course: Orders Placed This Encounter Procedures Initiate observation status Objective Recent Vital Signs: BP 137/82 Pulse 108 Temp 36.8 ??C (98.3 ??F) (Temporal) Resp 18 Ht 1.829 m (72 ) Wt 136 kg (300 lb) BMI 40.69 kg/m?? BP & Temp Min/Max Last 24 Hours: BP Min: 137/82 Min taken time: 05/08/24 1021 Max: 137/82 Max taken time: 05/08/24 1021 Temp Av.8 ??C (98.3 ??F) Min: 36.8 ??C (98.3 ??F) Min taken time: 05/08/24 1019 Max: 36.8 ??C (98.3 ??F) Max taken time: 05/08/24 1019 Physical Examination: GENERAL: Examination reveals a well developed, well nourished, gravid female in no acute distress. She is alert and cooperative. LUNGS: Respirations even and unlabored HEART: Appears well perfused, free of cyanosis/clubbing ABDOMEN: soft, gravid, nontender NEUROLOGICAL: alert, oriented, normal speech, no focal findings or movement disorder noted PSYCHOLOGICAL: awake and alert; oriented to person, place, and time NST Baseline FHT - 145 FHR Variability - moderate Accelerations - 2/10 Deceleration - none Contractions - none in 10 minutes Interpretation - RNST Recommendation for follow-up - prn Lab Review: Labs in chart were reviewed. Last pr cr ration on yesterday a 0.19 Rickie Miller, student middle or intermediate school principal participated in the care of this patient, I was present during the assessment and agree with above Amy Durant CNM documented in this encounter Medications at Time of Discharge hydrOXYzine pamoate (VISTARIL) 25 mg capsule Take 1 capsule (25 mg total) by mouth 3 (three) times a day if needed for itching. 30 capsule 1 04/18/2024 05/15/2024 vitamin iron fum-folic acid 27-0.8 mg per tablet Take 1 tablet by mouth 1 (one) time each day. 05/15/2024 documented as of this encounter Discharge Disposition Disposition Code Departure Means Destination Comment s Home or Self Detention documented in this encounter Progress Notes * Rut Capone RN - 05/08/2024 11:05 AM EST RNST tracing rev. By Uzair Durant cnm. Bp wnl, labs rev. By cachorro. Pt denies any h/a, no visual disturbance, no epigastric pain. D/c home in stable condition D/c instructions were given, pt. Stated understanding documented in this encounter Plan of Treatment Not on file documented as of this encounter Visit Diagnoses Diagnosis Elevated blood pressure reading in office without diagnosis of hypertension- Primary documented in this encounter Admitting Diagnoses Diagnosis Elevated blood pressure reading in office without diagnosis of hypertension documented in this encounter Orders Admission Count Last Ordered Date First Orde red Date INITIATE OBSERVATION STATUS 1 05/08/2024 Discharge Count Last Ordered Date First Orde red Date DISCHARGE PATIENT 1 05/08/2024 documented in this encounter Care Teams Alumni Relations Manager Relationship Specialty Start Date End Date Bernardino Pham NP [address] [facility] [place], [place] PCP - General Family Medicine 02/19/24 documented as of this encounter
--- NOTE | 2024-06-03 07:45 | A.OFFVIS_ITS ---
Intake Visit Reasons: Depression [phone] iPhone Allergies bacitracin Allergy (Unknown, Verified 04/19/24 12:03) blisters HPI HPI Depression [phone] iPhone: Details: History of Present Illness The patient is a 33-year-old female presenting with depression. This condition started following childbirth two to three weeks ago. She has a prior history of depression, but the current episode is noted to be more intense. The onset of these symptoms followed a traumatic labor experience involving induction. is ongoing, and the patient was commenced on sertraline 50 mg approximately three weeks ago. It has been discussed that this medication may take six weeks to show noticeable effects, potentially up to two months for full efficacy. The patient denies suicidal thoughts/HI, she is cons idering additional treatment options for anxiety that are safe during . Review of Systems - Psychiatric: Denies suicidal ideation, denies homicidal ideation - Endocrine: Current Plan The current management strategy for depression involves continuation of sertraline 50 mg, maintaining the dosage due to the anticipated full therapeutic effect timeframe extending to two months. I have initiated exploration into anti-anxiety medication options, with propranolol being considered pending OB-CHEMISTRY RESEARCH ASSISTANT approval, given the patient's status. The patient is tasked with monitoring her symptoms and urged to reach out through the patient portal next week for reassessment. She is also advised to contact emergency services or seek immediate medical attention in the event of any exacerbation of symptoms. Discussion Notes I discussed the current management of depression with the patient, emphasizing that sertraline, which was initiated three weeks ago, can take up to six weeks to demonstrate significant effect, and potentially up to two months for full efficacy. We are exploring alternative anxiety treatment options that will not interfere with , and I have requested she check with her OB-CHEMISTRY RESEARCH ASSISTANT regarding propranolol. The patient is informed of the importance of understanding any worsening symptoms and the safety measures of contacting crisis services or ER if needed. We agreed to maintain open communication via the patient portal for weekly updates on her condition, at which time further adjustments to her medication plan may be considered. Patient Instructions - Continue taking sertraline 50 mg daily. - Monitor your symptoms and communicate any changes or concerns. - Check with your OB-CHEMISTRY RESEARCH ASSISTANT regarding the safe use of propranolol while . - Update me via the patient portal next week about your progress. - Go to the ER or contact crisis services if your symptoms worsen. PFSH Medical History (Updated 04/19/24 @ 12:04 by DEB Porter) Asthma Anxiety Depression Surgical History (Updated 04/19/24 @ 11:25 by [facility] Enamorado [facility]) No pertinent past surgical history Family History Maternal Grandmother Mental health disorder Paternal Grandmother Mental health disorder Mother Mental health disorder Social History Housing: House Patient Tobacco Use Status: Never used Tobacco e-Cigarette/Vaping Use: Never Used service: No Current occupational status: employed Cognitive needs: No Hearing needs: No Vision needs: No Telehealth Telehealth Telehealth Platform: D[employer]im[employer] Location of provider rendering services: practice address Location of patient: address on file Patient Identification confirmed using: Name, : Yes Telehealth method: video Patient verbally consented to treatment: Yes Patient verbally consented to billing insurance company: Yes Patient informed of any privacy concerns related to visit: Yes Minutes spent on Phone/Video with Pt.: 15 Assessment & Plan Assessment & Plan (1) Depression: Code(s): F32.9 - Major depressive disorder, single episode, unspecified Category: Medical (2) Anxiety: Code(s): F41.9 - Anxiety disorder, unspecified Category: Medical Plan . Coding Level of Care Code Tele Est Pt Level 3 (53601) Diagnoses Depression F32.9 Anxiety F41.9
== END 2024-06-03 08:07 | disposition home or self-care (01) ==
LOC: HO.HMCC 07:23
PROVIDERS: PCP Nurse Practitioner Family; Visit Provider Nurse Practitioner Family
DX: F32.9 Major depressive disorder, single episode, unspecified (principal); F41.9 Anxiety disorder, unspecified

== ENCOUNTER → 2024-06-03 07:23 | Outpatient (BNVA) | payer OTHER, SELFPAY | PROVIDERS: PCP Nurse Practitioner Family; Visit Provider Nurse Practitioner Family ==